=== PATIENT | female | born 1955 | race Caucasian/White ===

== ENCOUNTER 2017-08-18 10:30 | Outpatient (RCR) | payer MEDICARE, SELFPAY ==
[2017-08-18 11:28] LABS: Absolute Lymphocyte Count 0.39 X10^3/ul (0.83-4.51); Absolute Neutrophil Count 3.1 X10^3/uL (2.0-7.7); Basophil# 0.03 X10^3/uL; Basophil% 0.8 % (0-1); Eosinophil# 0.12 X10^3/uL; Hematocrit 35.2 % (37-47); Hemoglobin 11.1 g/dl (12.0-15.0); Lymphocyte # 0.39 X10^3/ul (4.0); Lymphocyte % 9.8 % (19-41); Mean Corp Hgb Conc 31.5 g/gl (32-36); Mean Corpuscular Hgb 29.4 pg (27.0-32.0); Mean Corpuscular Volume 93.1 fL (81-99); Mean Platelet Vol. 11.5 fl (6.2-12.0); Monocyte# 0.39 X10^3/uL; Monocyte% 9.8 % (0-10); Neutrophil # 3.05 X10^3/uL (2.7-7.7); Neutrophil % 76.3 % (47-70); Platelet Count 184 K/mm3 (150-450); RBC Distribution Width CV 13.5 % (11.6-14.6); RBC Distribution Width SD 45.7 fl (35.1-43.9); Red Blood Count 3.78 M/mm3 (4.2-5.4)
[2017-08-18 11:32] LABS: Differential Indicated SCAN CRITERIA MET; POSITIVE COUNT NO; POSITIVE DIFFERENTIAL YES; POSITIVE MORPHOLOGY NO
[2017-08-18 12:03] LABS: Albumin, Serum 3.4 g/dL (3.4-5.0); Anion Gap 9 (5-15); BUN 16 mg/dL (7-18); Calcium,Total 8.6 mg/dL (8.5-10.1); Chloride 99 mmol/L (98-107); Creatinine, Serum 1.14 mg/dL (0.55-1.02); EST Glomerular Filtration Rate 51 mL/min (>60); Est Glom Filt Rate - Afr Amer 62 mL/min (>60); Ferritin 1066 ng/mL (8-252); Glucose 82 mg/dL (70-110); Iron 53 ug/dL (50-170); Iron Binding Capacity,Total 238 ug/dL (250-450); Magnesium 1.8 mg/dL (1.8-2.4); Phosphorus 2.9 mg/dL (2.5-4.9); Potassium 4.5 mmol/L (3.5-5.1); Sodium Level 134 mmol/L (136-145)
[2017-08-20 13:39] LABS: Cyclosporine 526 ng/mL (100-400); Transferrin 188 mg/dL (200-370)
== END 2017-08-18 10:45 | disposition home or self-care (01) ==
LOC: LAB 10:30
PROVIDERS: Family Provider Internal Medicine; PCP Internal Medicine; Visit Provider Physician Assistant
DX: Z48.298 Encounter for aftercare following other organ transplant (principal); D64.9 Anemia, unspecified; D89.9 Disorder involving the immune mechanism, unspecified; Z51.81 Encounter for therapeutic drug level monitoring; Z79.899 Other long term (current) drug therapy; Z94.0 Kidney transplant status
CPT/HCPCS: 36415; 80048; 80158; 82040; 82247; 82728; 83540; 83550; 83735; 84100; 84466; 84550; 85025

== ENCOUNTER 2017-09-15 10:35 | Outpatient (RCR) | payer MEDICARE, SELFPAY ==
[2017-07-29 10:22] VITALS: BP 122/60; BMI 17.0
[2017-09-15 11:21] LABS: Absolute Lymphocyte Count 0.35 X10^3/ul (0.83-4.51); Absolute Neutrophil Count 3.1 X10^3/uL (2.0-7.7); Basophil# 0.02 X10^3/uL; Basophil% 0.5 % (0-1); Eosinophils% 2.5 % (0-5); Hematocrit 36.2 % (37-47); Hemoglobin 11.4 g/dl (12.0-15.0); Lymphocyte # 0.35 X10^3/ul (4.0); Lymphocyte % 8.9 % (19-41); Mean Corp Hgb Conc 31.5 g/gl (32-36); Mean Corpuscular Hgb 29.2 pg (27.0-32.0); Mean Corpuscular Volume 92.6 fL (81-99); Mean Platelet Vol. 11.2 fl (6.2-12.0); Monocyte# 0.38 X10^3/uL; Monocyte% 9.7 % (0-10); Neutrophil # 3.07 X10^3/uL (2.7-7.7); Neutrophil % 78.1 % (47-70); Platelet Count 151 K/mm3 (150-450); RBC Distribution Width CV 13.9 % (11.6-14.6); RBC Distribution Width SD 46.7 fl (35.1-43.9); Red Blood Count 3.91 M/mm3 (4.2-5.4); White Blood Count 3.9 K/mm3 (4.4-11.0)
[2017-09-15 11:22] LABS: Differential Indicated SCAN CRITERIA MET; POSITIVE COUNT NO; POSITIVE DIFFERENTIAL YES; POSITIVE MORPHOLOGY NO
[2017-09-15 11:47] LABS: AST(SGOT) 19 U/L (15-37); Alanine Aminotransfer ALT/SGPT 31 U/L (13-56); Albumin, Serum 3.7 g/dL (3.2-5.0); BUN 18 mg/dL (7-18); Calcium,Total 8.9 mg/dL (8.5-10.1); Chloride 103 mmol/L (98-107); Cholesterol 278 mg/dL (200); Creatinine, Serum 1.18 mg/dL (0.55-1.02); EST Glomerular Filtration Rate 49 mL/min (>60); Est Glom Filt Rate - Afr Amer 59 mL/min (>60); Ferritin 940 ng/mL (8-252); Glucose 77 mg/dL (74-106); High Density Lipoprotein 99 mg/dL; Iron 54 ug/dL (50-170); Iron Binding Capacity,Total 256 ug/dL (250-450); Magnesium 1.8 mg/dL (1.6-2.6); Phosphorus 2.7 mg/dL (2.5-4.9); Potassium 3.9 mmol/L (3.5-5.1); Sodium Level 135 mmol/L (136-145); Triglycerides 68 mg/dL; Uric Acid 5.2 mg/dL (2.6-6.0); Very Low Density Lipoprotein 14 mg/dL (5-40)
[2017-09-15 14:28] LABS: Alkaline Phosphatase 42 U/L (45-117)
[2017-09-17 14:52] LABS: Cyclosporine 373 ng/mL (100-400); Transferrin 198 mg/dL (200-370)
== END 2017-09-15 11:00 | disposition home or self-care (01) ==
LOC: LAB 10:35
PROVIDERS: Family Provider Internal Medicine; PCP Internal Medicine; Visit Provider Physician Assistant
DX: D89.9 Disorder involving the immune mechanism, unspecified (principal); D64.9 Anemia, unspecified; Z94.0 Kidney transplant status; Z51.81 Encounter for therapeutic drug level monitoring; Z48.298 Encounter for aftercare following other organ transplant; Z79.899 Other long term (current) drug therapy
CPT/HCPCS: 36415; 80061; 80158; 82040; 82247; 82310; 82374; 82435; 82565; 82728; 82947; 83540; 83550; 83735; 84075; 84100; 84132; 84295; 84450; 84460; 84466; 84520; 84550; 85025

== ENCOUNTER 2017-10-13 10:35 | Outpatient (RCR) | payer MEDICARE, SELFPAY ==
[2017-10-13 11:25] LABS: Absolute Lymphocyte Count 0.44 X10^3/ul (0.83-4.51); Absolute Neutrophil Count 4.5 X10^3/uL (2.0-7.7); Basophil# 0.02 X10^3/uL; Basophil% 0.4 % (0-1); Eosinophil# 0.13 X10^3/uL; Eosinophils% 2.3 % (0-5); Hematocrit 36.8 % (37-47); Hemoglobin 11.6 g/dl (12.0-15.0); Lymphocyte # 0.44 X10^3/ul (4.0); Lymphocyte % 7.9 % (19-41); Mean Corp Hgb Conc 31.5 g/gl (32-36); Mean Corpuscular Hgb 29.1 pg (27.0-32.0); Mean Corpuscular Volume 92.5 fL (81-99); Mean Platelet Vol. 11.9 fl (6.2-12.0); Monocyte# 0.48 X10^3/uL; Monocyte% 8.6 % (0-10); Neutrophil # 4.47 X10^3/uL (2.7-7.7); Neutrophil % 80.6 % (47-70); Platelet Count 154 K/mm3 (150-450); RBC Distribution Width CV 13.7 % (11.6-14.6); Red Blood Count 3.98 M/mm3 (4.2-5.4); White Blood Count 5.6 K/mm3 (4.4-11.0)
[2017-10-13 11:26] LABS: POSITIVE COUNT NO; POSITIVE DIFFERENTIAL YES; POSITIVE MORPHOLOGY NO
[2017-10-13 11:27] LABS: Differential Indicated SCAN CRITERIA MET
[2017-10-13 11:51] LABS: BUN 15 mg/dL (7-18); Creatinine, Serum 1.25 mg/dL (0.55-1.02); EST Glomerular Filtration Rate 46 mL/min (>60); Est Glom Filt Rate - Afr Amer 56 mL/min (>60); Glucose 80 mg/dL (74-106); Potassium 4.1 mmol/L (3.5-5.1); Sodium Level 135 mmol/L (136-145)
[2017-10-16 09:27] LABS: Cyclosporine 484 ng/mL (100-400)
== END 2017-10-13 11:00 | disposition home or self-care (01) ==
LOC: LAB 10:35
PROVIDERS: Family Provider Internal Medicine; PCP Internal Medicine; Visit Provider Physician Assistant
DX: D89.9 Disorder involving the immune mechanism, unspecified (principal); D64.9 Anemia, unspecified; Z94.0 Kidney transplant status; Z51.81 Encounter for therapeutic drug level monitoring; Z48.298 Encounter for aftercare following other organ transplant; Z79.899 Other long term (current) drug therapy
CPT/HCPCS: 36415; 80158; 82374; 82565; 82947; 84132; 84295; 84520; 85025

== ENCOUNTER 2017-12-08 10:38 | Outpatient (RCR) | payer MEDICARE, SELFPAY ==
[2017-11-10 12:26] LABS: Absolute Lymphocyte Count 0.35 X10^3/ul (0.83-4.51); Absolute Neutrophil Count 5.2 X10^3/uL (2.0-7.7); Basophil# 0.03 X10^3/uL; Basophil% 0.5 % (0-1); Differential Indicated SCAN CRITERIA MET; Eosinophil# 0.12 X10^3/uL; Hematocrit 36.1 % (37-47); Hemoglobin 11.6 g/dl (12.0-15.0); Lymphocyte # 0.35 X10^3/ul (4.0); Lymphocyte % 5.8 % (19-41); Mean Corp Hgb Conc 32.1 g/gl (32-36); Mean Corpuscular Hgb 29.2 pg (27.0-32.0); Mean Corpuscular Volume 90.9 fL (81-99); Mean Platelet Vol. 12.2 fl (6.2-12.0); Monocyte# 0.37 X10^3/uL; Monocyte% 6.1 % (0-10); Neutrophil # 5.15 X10^3/uL (2.7-7.7); Neutrophil % 85.3 % (47-70); POSITIVE COUNT NO; POSITIVE DIFFERENTIAL YES; POSITIVE MORPHOLOGY NO; Platelet Count 148 K/mm3 (150-450); RBC Distribution Width CV 13.4 % (11.6-14.6); Red Blood Count 3.97 M/mm3 (4.2-5.4)
[2017-11-10 12:30] LABS: Ovalocyte 1+
[2017-11-10 12:31] LABS: Platelet Estimate ADEQUATE (ADEQ)
[2017-11-10 12:47] LABS: BUN 17 mg/dL (7-18); Chloride 104 mmol/L (98-107); EST Glomerular Filtration Rate 53 mL/min (>60); Est Glom Filt Rate - Afr Amer 64 mL/min (>60); Ferritin 824 ng/mL (8-252); Glucose 97 mg/dL (74-106); Iron 46 ug/dL (50-170); Iron Binding Capacity,Total 278 ug/dL (250-450); Potassium 3.8 mmol/L (3.5-5.1); Sodium Level 137 mmol/L (136-145)
[2017-11-12 08:13] LABS: Cyclosporine 544 ng/mL (100-400); Transferrin 207 mg/dL (200-370)
[2017-12-08 11:52] LABS: Absolute Lymphocyte Count 0.44 X10^3/ul (0.83-4.51); Absolute Neutrophil Count 3.7 X10^3/uL (2.0-7.7); Basophil# 0.02 X10^3/uL; Basophil% 0.4 % (0-1); Eosinophil# 0.11 X10^3/uL; Eosinophils% 2.3 % (0-5); Hematocrit 37.8 % (37-47); Lymphocyte # 0.44 X10^3/ul (4.0); Lymphocyte % 9.1 % (19-41); Mean Corp Hgb Conc 31.7 g/gl (32-36); Mean Corpuscular Hgb 28.8 pg (27.0-32.0); Mean Corpuscular Volume 90.6 fL (81-99); Mean Platelet Vol. 11.9 fl (6.2-12.0); Monocyte# 0.55 X10^3/uL; Monocyte% 11.4 % (0-10); Neutrophil # 3.68 X10^3/uL (2.7-7.7); Neutrophil % 76.6 % (47-70); Platelet Count 166 K/mm3 (150-450); RBC Distribution Width CV 13.6 % (11.6-14.6); RBC Distribution Width SD 44.4 fl (35.1-43.9); Red Blood Count 4.17 M/mm3 (4.2-5.4); White Blood Count 4.8 K/mm3 (4.4-11.0)
[2017-12-08 11:53] LABS: Differential Indicated SCAN CRITERIA MET; POSITIVE COUNT NO; POSITIVE DIFFERENTIAL YES; POSITIVE MORPHOLOGY NO
[2017-12-08 12:27] LABS: BUN 16 mg/dL (7-18); Chloride 98 mmol/L (98-107); Creatinine, Serum 1.08 mg/dL (0.55-1.02); EST Glomerular Filtration Rate 54 mL/min (>60); Est Glom Filt Rate - Afr Amer 66 mL/min (>60); Glucose 76 mg/dL (74-106); Sodium Level 133 mmol/L (136-145)
[2017-12-10 11:28] LABS: Cyclosporine 683 ng/mL (100-400)
== END 2017-12-08 11:00 | disposition home or self-care (01) ==
LOC: LAB 10:38
PROVIDERS: Family Provider Internal Medicine; PCP Internal Medicine; Visit Provider Physician Assistant
DX: D89.9 Disorder involving the immune mechanism, unspecified (principal); D64.9 Anemia, unspecified; Z94.0 Kidney transplant status; Z51.81 Encounter for therapeutic drug level monitoring; Z48.298 Encounter for aftercare following other organ transplant; Z79.899 Other long term (current) drug therapy
CPT/HCPCS: 36415; 80158; 82374; 82435; 82565; 82728; 82947; 83540; 83550; 84132; 84295; 84466; 84520; 85025

== ENCOUNTER 2018-01-08 09:41 | Outpatient (RCR) | payer MEDICARE, SELFPAY ==
[2018-01-06 11:50] LABS: Protein, Urine (Random) 23.7 mg/dL (<11.9); Protein:Creat Ratio 101 mg/g CRE (0-200)
[2018-01-06 11:51] LABS: Hematocrit 37.3 % (37-47); Mean Corp Hgb Conc 32.2 g/gl (32-36); Mean Corpuscular Hgb 28.8 pg (27.0-32.0); Mean Corpuscular Volume 89.4 fL (81-99); Platelet Count 154 K/mm3 (150-450); RBC Distribution Width CV 13.5 % (11.6-14.6); RBC Distribution Width SD 44.2 fl (35.1-43.9); Red Blood Count 4.17 M/mm3 (4.2-5.4); White Blood Count 4.6 K/mm3 (4.4-11.0)
[2018-01-06 12:00] LABS: Scan Indicated on CBC? Y/N NO
[2018-01-06 12:55] LABS: AST(SGOT) 24 U/L (15-37); Alanine Aminotransfer ALT/SGPT 28 U/L (13-56); Albumin, Serum 3.9 g/dL (3.2-5.0); Alkaline Phosphatase 45 U/L (45-117); BUN 17 mg/dL (7-18); Calcium,Total 9.2 mg/dL (8.5-10.1); Chloride 99 mmol/L (98-107); Cholesterol 223 mg/dL (200); Creatinine, Serum 1.04 mg/dL (0.55-1.02); EST Glomerular Filtration Rate 57 mL/min (>60); Est Glom Filt Rate - Afr Amer 69 mL/min (>60); Ferritin 1033 ng/mL (8-252); Globulin 2.9 g/dL (2.2-4.2); Glucose 79 mg/dL (74-106); High Density Lipoprotein 79 mg/dL; Iron 48 ug/dL (50-170); Iron Binding Capacity,Total 273 ug/dL (250-450); Magnesium 1.7 mg/dL (1.6-2.6); PERCENT IRON SATURATION 17.6 % (15.0-55.0); Phosphorus 2.7 mg/dL (2.5-4.9); Potassium 3.8 mmol/L (3.5-5.1); Protein, Total 6.8 g/dL (6.4-8.2); Sodium Level 135 mmol/L (136-145); Triglycerides 111 mg/dL; Uric Acid 6.3 mg/dL (2.6-6.0)
[2018-01-07 08:41] LABS: PTHIN 63.7 pg/mL (18.4-80.1)
[2018-01-08 10:33] LABS: 24HR. UA Prot. Total Volume 2825 mL; 24HR. Urine Creatinine 0.83 g/24 HR (0.70-1.90)
[2018-01-08 10:34] LABS: Urine Protein (24 Hour) < 6.0 mg/dL (<11.9)
[2018-01-08 12:07] LABS: CHOLESTEROL TOTAL 226 mg/dL (100-199); HDL-C 80 mg/dL (>39); HDL-P TOTAL 37.1 umol/L (>=30.5); SMALL LDL-P <90 nmol/L (<=527); TRIGLYCERIDES 119 mg/dL (0-149)
[2018-01-08 14:35] LABS: LDL SIZE 21.8 nm (>20.5); LDL-C 122 mg/dL (0-99); LDL-P 1038 nmol/L (<1000); LP-IR SCORE ** <25 (<=45)
[2018-01-08 20:08] LABS: LDL, Direct 120295 137 mg/dL (0-99)
[2018-01-09 10:14] LABS: Cyclosporine 566 ng/mL (100-400)
== END 2018-01-08 10:00 | disposition home or self-care (01) ==
LOC: LAB 09:41
PROVIDERS: Family Provider Internal Medicine; PCP Internal Medicine; Visit Provider Physician Assistant
DX: D89.9 Disorder involving the immune mechanism, unspecified (principal); Z94.0 Kidney transplant status; Z48.298 Encounter for aftercare following other organ transplant; Z11.59 Encounter for screening for other viral diseases; Z79.899 Other long term (current) drug therapy; D64.9 Anemia, unspecified; Z51.81 Encounter for therapeutic drug level monitoring
CPT/HCPCS: 36415; 80061; 80076; 80158; 82310; 82435; 82465; 82565; 82570; 82728; 82947; 83540; 83550; 83704; 83718; 83721; 83735; 83970; 84100; 84132; 84156; 84295; 84478; 84520; 84550; 85027

== ENCOUNTER 2018-02-02 10:37 | Outpatient (RCR) | payer MEDICARE, SELFPAY ==
[2018-02-02 11:13] LABS: Hematocrit 39.5 % (37-47); Hemoglobin 12.8 g/dl (12.0-15.0); Mean Corp Hgb Conc 32.4 g/gl (32-36); Mean Corpuscular Hgb 29.4 pg (27.0-32.0); Mean Corpuscular Volume 90.8 fL (81-99); Platelet Count 156 K/mm3 (150-450); RBC Distribution Width CV 13.2 % (11.6-14.6); RBC Distribution Width SD 43.2 fl (35.1-43.9); Red Blood Count 4.35 M/mm3 (4.2-5.4); Scan Indicated on CBC? Y/N NO; White Blood Count 4.5 K/mm3 (4.4-11.0)
[2018-02-02 11:25] LABS: Protein, Urine (Random) 10.2 mg/dL (<11.9); Protein:Creat Ratio 86 mg/g CRE (0-200)
[2018-02-02 11:41] LABS: AST(SGOT) 24 U/L (15-37); Alanine Aminotransfer ALT/SGPT 30 U/L (13-56); Albumin, Serum 3.8 g/dL (3.2-5.0); BUN 16 mg/dL (7-18); Calcium,Total 9.3 mg/dL (8.5-10.1); Chloride 100 mmol/L (98-107); Cholesterol 231 mg/dL (200); Creatinine, Serum 1.06 mg/dL (0.55-1.02); EST Glomerular Filtration Rate 55 mL/min (>60); Est Glom Filt Rate - Afr Amer 67 mL/min (>60); Ferritin 960 ng/mL (8-252); Glucose 80 mg/dL (74-106); High Density Lipoprotein 86 mg/dL; Iron 51 ug/dL (50-170); Iron Binding Capacity,Total 276 ug/dL (250-450); Magnesium 2.1 mg/dL (1.6-2.6); Potassium 4.1 mmol/L (3.5-5.1); Sodium Level 137 mmol/L (136-145); Triglycerides 125 mg/dL; Uric Acid 5.7 mg/dL (2.6-6.0); Very Low Density Lipoprotein 25 mg/dL (5-40)
[2018-02-05 10:43] LABS: Cyclosporine 739 ng/mL (100-400); Transferrin 215 mg/dL (200-370)
== END 2018-02-02 11:00 | disposition home or self-care (01) ==
LOC: LAB 10:37
PROVIDERS: Family Provider Internal Medicine; PCP Internal Medicine; Visit Provider Physician Assistant
DX: D89.9 Disorder involving the immune mechanism, unspecified (principal); B34.9 Viral infection, unspecified; Z94.0 Kidney transplant status; Z48.298 Encounter for aftercare following other organ transplant; Z11.59 Encounter for screening for other viral diseases
CPT/HCPCS: 36415; 80061; 80158; 82040; 82247; 82310; 82374; 82435; 82565; 82570; 82728; 82947; 83540; 83550; 83735; 84100; 84132; 84156; 84295; 84450; 84460; 84466; 84520; 84550; 85027

== ENCOUNTER → 2018-02-02 11:00 | Outpatient (CLI) | payer MEDICARE, SELFPAY ==
[2018-02-02 11:08] VITALS: BP 129/55; PULSE 58; RESP 18; TEMP 36.3; O2SAT 100; BMI 17.0
[2018-02-02] MEDS: DENOSUMAB 60 MG/ML ML SQ (11:13)
== END ==
PROVIDERS: Family Provider Internal Medicine; PCP Internal Medicine; Visit Provider Internal Medicine
DX: M81.0 Age-related osteoporosis without current pathological fracture (principal)
CPT/HCPCS: 36415; 80061; 80158; 82040; 82247; 82310; 82374; 82435; 82565; 82570; 82728; 82947; 83540; 83550; 83735; 84100; 84132; 84156; 84295; 84450; 84460; 84466; 84520; 84550; 85027; 96372; J0897

== ENCOUNTER 2018-03-02 10:35 | Outpatient (RCR) | payer MEDICARE, SELFPAY ==
[2018-03-02 12:12] LABS: Absolute Lymphocyte Count 0.54 X10^3/ul (0.83-4.51); Absolute Neutrophil Count 3.6 X10^3/uL (2.0-7.7); Basophil# 0.03 X10^3/uL; Basophil% 0.6 % (0-1); Eosinophil# 0.17 X10^3/uL; Eosinophils% 3.6 % (0-5); Hematocrit 40.5 % (37-47); Lymphocyte # 0.54 X10^3/ul (4.0); Lymphocyte % 11.4 % (19-41); Mean Corp Hgb Conc 32.1 g/gl (32-36); Mean Corpuscular Hgb 29.1 pg (27.0-32.0); Mean Corpuscular Volume 90.6 fL (81-99); Mean Platelet Vol. 12.7 fl (6.2-12.0); Monocyte% 8.4 % (0-10); Neutrophil % 75.8 % (47-70); Platelet Count 153 K/mm3 (150-450); RBC Distribution Width CV 13.5 % (11.6-14.6); RBC Distribution Width SD 44.1 fl (35.1-43.9); Red Blood Count 4.47 M/mm3 (4.2-5.4); White Blood Count 4.8 K/mm3 (4.4-11.0)
[2018-03-02 12:16] LABS: Differential Indicated SCAN CRITERIA MET; POSITIVE COUNT NO; POSITIVE DIFFERENTIAL YES; POSITIVE MORPHOLOGY NO
[2018-03-02 12:30] LABS: BUN 19 mg/dL (7-18); Chloride 102 mmol/L (98-107); Creatinine, Serum 1.23 mg/dL (0.55-1.02); EST Glomerular Filtration Rate 47 mL/min (>60); Est Glom Filt Rate - Afr Amer 57 mL/min (>60); Glucose 62 mg/dL (74-106); Potassium 4.1 mmol/L (3.5-5.1); Sodium Level 139 mmol/L (136-145)
[2018-03-04 14:46] LABS: Cyclosporine 472 ng/mL (100-400)
== END 2018-03-02 12:00 | disposition home or self-care (01) ==
LOC: LAB 10:35
PROVIDERS: Family Provider Internal Medicine; PCP Internal Medicine; Visit Provider Physician Assistant
DX: D89.9 Disorder involving the immune mechanism, unspecified (principal); B34.9 Viral infection, unspecified; E11.9 Type 2 diabetes mellitus without complications; Z94.0 Kidney transplant status; Z48.298 Encounter for aftercare following other organ transplant; Z11.59 Encounter for screening for other viral diseases
CPT/HCPCS: 36415; 80158; 82374; 82435; 82565; 82947; 84132; 84295; 84520; 85025

== ENCOUNTER 2018-03-30 10:36 | Outpatient (RCR) | payer MEDICARE, SELFPAY ==
[2018-03-30 11:09] LABS: Absolute Lymphocyte Count 0.41 X10^3/ul (0.83-4.51); Absolute Neutrophil Count 5.4 X10^3/uL (2.0-7.7); Basophil# 0.03 X10^3/uL; Basophil% 0.5 % (0-1); Eosinophil# 0.08 X10^3/uL; Eosinophils% 1.3 % (0-5); Hematocrit 40.8 % (37-47); Hemoglobin 12.8 g/dl (12.0-15.0); Lymphocyte # 0.41 X10^3/ul (4.0); Lymphocyte % 6.6 % (19-41); Mean Corp Hgb Conc 31.4 g/gl (32-36); Mean Corpuscular Hgb 28.4 pg (27.0-32.0); Mean Corpuscular Volume 90.7 fL (81-99); Mean Platelet Vol. 11.3 fl (6.2-12.0); Monocyte# 0.37 X10^3/uL; Monocyte% 5.9 % (0-10); Neutrophil # 5.35 X10^3/uL (2.7-7.7); Neutrophil % 85.5 % (47-70); Platelet Count 148 K/mm3 (150-450); RBC Distribution Width CV 13.8 % (11.6-14.6); RBC Distribution Width SD 45.4 fl (35.1-43.9); White Blood Count 6.3 K/mm3 (4.4-11.0)
[2018-03-30 11:14] LABS: Differential Indicated SCAN CRITERIA MET; POSITIVE COUNT NO; POSITIVE DIFFERENTIAL YES; POSITIVE MORPHOLOGY NO
[2018-03-30 12:03] LABS: BUN 16 mg/dL (7-18); BUN/Creat Ratio 16.6 RATIO (10-20); Creatinine, Serum 0.96 mg/dL (0.55-1.02); EST Glomerular Filtration Rate 62 mL/min (>60); Est Glom Filt Rate - Afr Amer 75 mL/min (>60); Glucose 86 mg/dL (74-106); Protein, Total 6.8 g/dL (6.4-8.2)
[2018-03-30 12:04] LABS: ALB/GLOB Ratio 1.4 RATIO (0.9-2.4); AST(SGOT) 27 U/L (15-37); Alanine Aminotransfer ALT/SGPT 38 U/L (13-56); Alkaline Phosphatase 45 U/L (45-117); Anion Gap 10 (5-15); Calcium,Total 8.9 mg/dL (8.5-10.1); Chloride 102 mmol/L (98-107); Globulin 2.8 g/dL (2.2-4.2); Potassium 4.1 mmol/L (3.5-5.1); Sodium Level 138 mmol/L (136-145)
[2018-04-01 11:19] LABS: Cyclosporine 611 ng/mL (100-400)
== END 2018-03-30 12:00 | disposition home or self-care (01) ==
LOC: LAB 10:36
PROVIDERS: Family Provider Internal Medicine; PCP Internal Medicine; Visit Provider Physician Assistant
DX: Z48.298 Encounter for aftercare following other organ transplant (principal); Z94.0 Kidney transplant status; Z11.59 Encounter for screening for other viral diseases; B34.9 Viral infection, unspecified; D89.9 Disorder involving the immune mechanism, unspecified
CPT/HCPCS: 36415; 80053; 80158; 85025

== ENCOUNTER 2018-04-27 10:37 | Outpatient (RCR) | payer MEDICARE, SELFPAY ==
[2018-04-27 11:09] LABS: Absolute Neutrophil Count 4.7 X10^3/uL (2.0-7.7); Basophil# 0.03 X10^3/uL; Basophil% 0.5 % (0-1); Eosinophil# 0.11 X10^3/uL; Eosinophils% 1.9 % (0-5); Hematocrit 41.7 % (37-47); Hemoglobin 13.5 g/dl (12.0-15.0); Lymphocyte % 8.5 % (19-41); Mean Corp Hgb Conc 32.4 g/gl (32-36); Mean Corpuscular Hgb 28.8 pg (27.0-32.0); Mean Corpuscular Volume 89.1 fL (81-99); Mean Platelet Vol. 11.4 fl (6.2-12.0); Monocyte# 0.54 X10^3/uL; Monocyte% 9.2 % (0-10); Neutrophil # 4.66 X10^3/uL (2.7-7.7); Neutrophil % 79.7 % (47-70); Platelet Count 151 K/mm3 (150-450); RBC Distribution Width CV 13.8 % (11.6-14.6); RBC Distribution Width SD 44.6 fl (35.1-43.9); Red Blood Count 4.68 M/mm3 (4.2-5.4); White Blood Count 5.9 K/mm3 (4.4-11.0)
[2018-04-27 11:13] LABS: Differential Indicated SCAN CRITERIA MET; POSITIVE COUNT NO; POSITIVE DIFFERENTIAL YES; POSITIVE MORPHOLOGY NO
[2018-04-27 11:28] LABS: Anion Gap 3 (5-15); BUN 17 mg/dL (7-18); BUN/Creat Ratio 16.2 RATIO (10-20); Calcium,Total 9.9 mg/dL (8.5-10.1); Chloride 102 mmol/L (98-107); Creatinine, Serum 1.05 mg/dL (0.55-1.02); EST Glomerular Filtration Rate 56 mL/min (>60); Est Glom Filt Rate - Afr Amer 68 mL/min (>60); Glucose 86 mg/dL (74-106); Potassium 4.1 mmol/L (3.5-5.1); Sodium Level 136 mmol/L (136-145)
[2018-04-30 09:01] LABS: Cyclosporine 360 ng/mL (100-400)
== END 2018-04-27 12:00 | disposition home or self-care (01) ==
LOC: LAB 10:37
PROVIDERS: Family Provider Internal Medicine; PCP Internal Medicine; Visit Provider Physician Assistant
DX: Z48.298 Encounter for aftercare following other organ transplant (principal); R79.9 Abnormal finding of blood chemistry, unspecified; Z94.0 Kidney transplant status; Z11.59 Encounter for screening for other viral diseases; B34.9 Viral infection, unspecified; D89.9 Disorder involving the immune mechanism, unspecified; Z51.81 Encounter for therapeutic drug level monitoring
CPT/HCPCS: 36415; 80048; 80158; 85025

== ENCOUNTER 2018-05-18 10:35 | Outpatient (RCR) | payer MEDICARE, SELFPAY ==
[2018-05-18 11:21] LABS: Absolute Lymphocyte Count 0.38 X10^3/ul (0.83-4.51); Absolute Neutrophil Count 5.3 X10^3/uL (2.0-7.7); Basophil# 0.03 X10^3/uL; Basophil% 0.5 % (0-1); Eosinophil# 0.08 X10^3/uL; Eosinophils% 1.3 % (0-5); Hematocrit 41.3 % (37-47); Hemoglobin 13.3 g/dl (12.0-15.0); Lymphocyte # 0.38 X10^3/ul (4.0); Lymphocyte % 6.3 % (19-41); Mean Corp Hgb Conc 32.2 g/gl (32-36); Mean Corpuscular Hgb 28.8 pg (27.0-32.0); Mean Corpuscular Volume 89.4 fL (81-99); Mean Platelet Vol. 11.9 fl (6.2-12.0); Neutrophil # 5.25 X10^3/uL (2.7-7.7); Neutrophil % 86.7 % (47-70); Platelet Count 149 K/mm3 (150-450); RBC Distribution Width CV 13.5 % (11.6-14.6); RBC Distribution Width SD 43.7 fl (35.1-43.9); Red Blood Count 4.62 M/mm3 (4.2-5.4); White Blood Count 6.1 K/mm3 (4.4-11.0)
[2018-05-18 11:22] LABS: Differential Indicated SCAN CRITERIA MET; POSITIVE COUNT NO; POSITIVE DIFFERENTIAL YES; POSITIVE MORPHOLOGY NO
[2018-05-18 11:48] LABS: Anion Gap 7 (5-15); BUN 17 mg/dL (7-18); BUN/Creat Ratio 17.1 RATIO (10-20); Calcium,Total 9.5 mg/dL (8.5-10.1); Chloride 101 mmol/L (98-107); Creatinine, Serum 0.99 mg/dL (0.55-1.02); EST Glomerular Filtration Rate 60 mL/min (>60); Est Glom Filt Rate - Afr Amer 72 mL/min (>60); Glucose 87 mg/dL (74-106); Potassium 4.4 mmol/L (3.5-5.1); Sodium Level 137 mmol/L (136-145)
[2018-05-18 12:47] LABS: Platelet Estimate ADEQUATE (ADEQ); Red Cell Morphology NORM C+C NORMAL (NORM C&C)
[2018-05-20 15:14] LABS: Cyclosporine 251 ng/mL (100-400)
== END 2018-05-18 12:00 | disposition home or self-care (01) ==
LOC: LAB 10:35
PROVIDERS: Family Provider Internal Medicine; PCP Internal Medicine
DX: Z48.298 Encounter for aftercare following other organ transplant (principal); R79.9 Abnormal finding of blood chemistry, unspecified; D89.9 Disorder involving the immune mechanism, unspecified; Z94.0 Kidney transplant status; R68.89 Other general symptoms and signs
CPT/HCPCS: 36415; 80048; 80158; 85025

== ENCOUNTER → 2018-06-16 09:28 | Outpatient (CLI) | payer MEDICARE, SELFPAY ==
--- NOTE | 2018-06-16 09:53 | RAD_ITS ---
STUDY: X-RAY - LEFT FOOT CLINICAL: Female, 62 years old. Pain and bruising base of fourth and fifth toes after trauma. TECHNIQUE: 3 view(s) of the foot. COMPARISON: None. FINDINGS: Normal talus, calcaneus, and tarsal bones. Normal visualized subtalar, talonavicular, calcaneocuboid, tarsal and tarsometatarsal articulations. Thickening of the cortex distal diaphysis of the fifth metatarsal compatible with a healed fracture. Normal metatarsophalangeal joint of the great toe. Normal tibial and fibular sesamoid bones. Normal interphalangeal joint of the great toe. Normal phalanges of the great toe. Normal second through fifth metatarsophalangeal joints. Longitudinal nondisplaced fracture midshaft proximal phalanx fourth toe versus healed fracture. The soft tissue structures are unremarkable. RAD/Foot min 3 Views IMPRESSION: Nondisplaced fracture proximal phalanx of the fourth toe versus healed fracture. Old fracture fifth metatarsal. Electronically Signed: Jakob Griffin MD at 5:05 EST , Service support ,
== END ==
PROVIDERS: Family Provider Internal Medicine; PCP Internal Medicine; Referring Provider Internal Medicine; Visit Provider Internal Medicine
DX: M79.672 Pain in left foot (principal)
CPT/HCPCS: 73630

== ENCOUNTER → 2018-06-17 13:15 | Outpatient (CLI) | payer SELFPAY ==
--- NOTE | 2018-06-17 13:27 | CT_ITS ---
STUDY: CT CHEST WITHOUT CONTRAST REASON FOR EXAM: Female, 62 years old. Elevated cholesterol RADIATION DOSAGE (If Supplied By Facility): CTDIvol = ( 12.19 ) mGy, DLP = ( 268.17 ) mGycm TECHNIQUE: Transaxial imaging was performed without the administration of intravenous contrast material. Individualized dose optimization techniques were used for this CT. COMPARISON: None. FINDINGS: : TRACHEA, THYROID, ESOPHAGUS: No tracheomalacia,stricture or wall thickening. Thyroid and esophagus are normal CARDIOVASCULAR SYSTEM: The thoracic aorta is grossly within normal limits. The pulmonary trunk and the left and right pulmonary arteries are also grossly within normal limits. Heart is enlarged with a mild left ventricular preponderance. FIDELINA AND LYMPH NODES: No hilar masses and no mediastinal, hilar, axillary or supraclavicular adenopathy LUNGS, LOW-ATTENUATION: No traction bronchiectasis, honeycombing,emphysema, lung cysts or cavitations LUNGS, HIGH ATTENUATION: No nodules/masses, ground glass opacities/consolidations or increased interstitial markings LUNGS, MOSAIC/CRAZY PAVING: Not evident PLEURA AND CHEST WALL: No plural effusions, pneumothoraces,rib fractures or any osteolytic/osteoblastic changes . The soft tissue chest wall including the breasts are normal UPPER ABDOMEN: Markedly atrophic kidneys .. CT/Limited Chest CT w/CCTA IMPRESSION: Mild cardiomegaly with left ventricular preponderance. No acute findings in the lungs. No emphysematous changes in the lungs Electronically Signed: Fritz Verde MD at 3:21 EST Tel , Service support ,
[2018-06-17 13:34] VITALS: BP 120/50; PULSE 63; RESP 16; O2SAT 100; BMI 17.6
--- NOTE | 2018-06-17 18:17 | CA.SCORE ---
Calcium Scoring Date of Study:: 06/17/18 Coronary Calcium Scoring: Coronary calcium score: 0.0 Conclusion: Coronary calcium score: 0.0 Results: The patient underwent high resolution CT imaging of the chest on 06/17/2018. Particular attention was paid to the coronary arteries for the extent of coronary artery calcification. Coronary calcium quantification software was subsequently used. The patient was reported as tolerating the procedure well with no adverse events. The coronary calcium score was reported at 0.0. Based upon pre-published reference tables this is indicative of no identifiable atherosclerotic plaque and a very low risk of cardiovascular disease with a less than 5% chance of the presence of coronary artery disease. Impression: Coronary calcium score: 0.0 This note was generated using a voice recognition system and there may be incorrect words, spelling or punctuation that were not noted when reviewing the office note prior to saving.
== END ==
PROVIDERS: Family Provider Internal Medicine; PCP Internal Medicine; Referring Provider Internal Medicine; Visit Provider Internal Medicine
DX: E78.00 Pure hypercholesterolemia, unspecified (principal)
CPT/HCPCS: 75571; 76380

== ENCOUNTER 2018-06-22 10:41 | Outpatient (RCR) | payer MEDICARE, SELFPAY ==
[2018-06-22 11:30] LABS: Absolute Lymphocyte Count 0.43 X10^3/ul (0.83-4.51); Absolute Neutrophil Count 4.3 X10^3/uL (2.0-7.7); Basophil# 0.02 X10^3/uL; Basophil% 0.4 % (0-1); Eosinophil# 0.13 X10^3/uL; Eosinophils% 2.4 % (0-5); Hematocrit 38.6 % (37-47); Hemoglobin 12.3 g/dl (12.0-15.0); Lymphocyte # 0.43 X10^3/ul (4.0); Lymphocyte % 8.1 % (19-41); Mean Corp Hgb Conc 31.9 g/gl (32-36); Mean Corpuscular Hgb 28.8 pg (27.0-32.0); Mean Corpuscular Volume 90.4 fL (81-99); Mean Platelet Vol. 12.4 fl (6.2-12.0); Monocyte# 0.41 X10^3/uL; Monocyte% 7.7 % (0-10); Neutrophil # 4.34 X10^3/uL (2.7-7.7); Neutrophil % 81.2 % (47-70); Platelet Count 134 K/mm3 (150-450); RBC Distribution Width CV 13.2 % (11.6-14.6); RBC Distribution Width SD 43.3 fl (35.1-43.9); Red Blood Count 4.27 M/mm3 (4.2-5.4); White Blood Count 5.3 K/mm3 (4.4-11.0)
[2018-06-22 11:34] LABS: Differential Indicated SCAN CRITERIA MET; POSITIVE COUNT NO; POSITIVE DIFFERENTIAL YES; POSITIVE MORPHOLOGY NO
[2018-06-22 11:40] LABS: Anion Gap 6 (5-15); BUN 19 mg/dL (7-18); BUN/Creat Ratio 17.8 RATIO (10-20); Calcium,Total 9.1 mg/dL (8.5-10.1); Chloride 98 mmol/L (98-107); Creatinine, Serum 1.07 mg/dL (0.55-1.02); EST Glomerular Filtration Rate 55 mL/min (>60); Est Glom Filt Rate - Afr Amer 66 mL/min (>60); Glucose 82 mg/dL (74-106); Potassium 4.7 mmol/L (3.5-5.1); Sodium Level 133 mmol/L (136-145)
[2018-06-24 10:24] LABS: Cyclosporine 223 ng/mL (100-400)
== END 2018-07-10 09:37 | disposition home or self-care (01) ==
LOC: LAB 10:41
PROVIDERS: Family Provider Internal Medicine; PCP Internal Medicine; Referring Provider Physician Assistant; Visit Provider Physician Assistant
DX: Z48.298 Encounter for aftercare following other organ transplant (principal); R79.9 Abnormal finding of blood chemistry, unspecified; D89.9 Disorder involving the immune mechanism, unspecified; Z94.0 Kidney transplant status; R68.89 Other general symptoms and signs
CPT/HCPCS: 36415; 80048; 80158; 85025

== ENCOUNTER 2018-07-20 10:37 | Outpatient (RCR) | payer MEDICARE, SELFPAY ==
[2018-07-20 11:48] LABS: Absolute Lymphocyte Count 0.56 X10^3/ul (0.83-4.51); Absolute Neutrophil Count 4.8 X10^3/uL (2.0-7.7); Basophil# 0.03 X10^3/uL; Basophil% 0.5 % (0-1); Eosinophil# 0.15 X10^3/uL; Eosinophils% 2.6 % (0-5); Hematocrit 37.3 % (37-47); Hemoglobin 11.9 g/dl (12.0-15.0); Lymphocyte # 0.56 X10^3/ul (4.0); Lymphocyte % 9.8 % (19-41); Mean Corp Hgb Conc 31.9 g/gl (32-36); Mean Corpuscular Hgb 28.5 pg (27.0-32.0); Mean Corpuscular Volume 89.2 fL (81-99); Mean Platelet Vol. 11.1 fl (6.2-12.0); Monocyte# 0.24 X10^3/uL; Monocyte% 4.2 % (0-10); Neutrophil # 4.75 X10^3/uL (2.7-7.7); Neutrophil % 82.7 % (47-70); Platelet Count 186 K/mm3 (150-450); RBC Distribution Width CV 13.1 % (11.6-14.6); RBC Distribution Width SD 42.8 fl (35.1-43.9); Red Blood Count 4.18 M/mm3 (4.2-5.4); White Blood Count 5.7 K/mm3 (4.4-11.0)
[2018-07-20 11:53] LABS: Anion Gap 9 (5-15); BUN 14 mg/dL (7-18); BUN/Creat Ratio 13.7 RATIO (10-20); Calcium,Total 9.7 mg/dL (8.5-10.1); Chloride 97 mmol/L (98-107); Creatinine, Serum 1.02 mg/dL (0.55-1.02); EST Glomerular Filtration Rate 58 mL/min (>60); Est Glom Filt Rate - Afr Amer 70 mL/min (>60); Glucose 88 mg/dL (74-106); Potassium 4.5 mmol/L (3.5-5.1); Sodium Level 136 mmol/L (136-145)
[2018-07-20 13:22] LABS: POSITIVE COUNT NO; POSITIVE DIFFERENTIAL YES; POSITIVE MORPHOLOGY NO
[2018-07-20 13:23] LABS: Differential Indicated SCAN CRITERIA MET; Platelet Estimate ADEQUATE (ADEQ); Red Cell Morphology NORM C+C NORMAL (NORM C&C)
[2018-07-24 09:17] LABS: Cyclosporine 281 ng/mL (100-400)
== END 2018-07-20 14:00 | disposition home or self-care (01) ==
LOC: LAB 10:37
PROVIDERS: Family Provider Internal Medicine; PCP Internal Medicine; Referring Provider Physician Assistant; Visit Provider Physician Assistant
DX: Z48.298 Encounter for aftercare following other organ transplant (principal); R79.9 Abnormal finding of blood chemistry, unspecified; D89.9 Disorder involving the immune mechanism, unspecified; Z94.0 Kidney transplant status; R68.89 Other general symptoms and signs
CPT/HCPCS: 36415; 80048; 80158; 85025

== ENCOUNTER → 2018-08-05 08:58 | Outpatient (CLI) | payer MEDICARE, SELFPAY ==
[2018-06-17 13:34] VITALS: BMI 17.6
[2018-08-05 09:15] VITALS: BP 123/45; PULSE 56; RESP 16; TEMP 36.6; O2SAT 98; BMI 17.6
[2018-08-05] MEDS: DENOSUMAB 60 MG/ML ML SQ (09:24)
== END ==
PROVIDERS: Family Provider Internal Medicine; PCP Internal Medicine; Referring Provider Internal Medicine; Visit Provider Internal Medicine
DX: M81.0 Age-related osteoporosis without current pathological fracture (principal)
CPT/HCPCS: 96372; J0897

== ENCOUNTER 2018-08-17 10:30 | Outpatient (RCR) | payer MEDICARE, SELFPAY ==
[2018-08-05 09:15] VITALS: BMI 17.6
[2018-08-17 10:58] LABS: Absolute Lymphocyte Count 0.48 X10^3/ul (0.83-4.51); Absolute Neutrophil Count 2.8 X10^3/uL (2.0-7.7); Basophil# 0.03 X10^3/uL; Basophil% 0.8 % (0-1); Eosinophil# 0.13 X10^3/uL; Eosinophils% 3.4 % (0-5); Hematocrit 38.5 % (37-47); Hemoglobin 12.6 g/dl (12.0-15.0); Lymphocyte # 0.48 X10^3/ul (4.0); Lymphocyte % 12.5 % (19-41); Mean Corp Hgb Conc 32.7 g/gl (32-36); Mean Corpuscular Hgb 28.6 pg (27.0-32.0); Mean Corpuscular Volume 87.3 fL (81-99); Mean Platelet Vol. 11.8 fl (6.2-12.0); Monocyte# 0.43 X10^3/uL; Monocyte% 11.2 % (0-10); Neutrophil # 2.76 X10^3/uL (2.7-7.7); Neutrophil % 71.8 % (47-70); Platelet Count 158 K/mm3 (150-450); RBC Distribution Width CV 13.4 % (11.6-14.6); Red Blood Count 4.41 M/mm3 (4.2-5.4); White Blood Count 3.8 K/mm3 (4.4-11.0)
[2018-08-17 11:00] LABS: Differential Indicated SCAN CRITERIA MET; POSITIVE COUNT NO; POSITIVE DIFFERENTIAL YES; POSITIVE MORPHOLOGY NO
[2018-08-17 11:35] LABS: Anion Gap 9 (5-15); BUN 19 mg/dL (7-18); BUN/Creat Ratio 17.6 RATIO (10-20); Calcium,Total 9.4 mg/dL (8.5-10.1); Chloride 97 mmol/L (98-107); Creatinine, Serum 1.08 mg/dL (0.55-1.02); EST Glomerular Filtration Rate 54 mL/min (>60); Est Glom Filt Rate - Afr Amer 66 mL/min (>60); Glucose 75 mg/dL (74-106); Potassium 4.2 mmol/L (3.5-5.1); Sodium Level 133 mmol/L (136-145)
[2018-08-20 09:55] LABS: Cyclosporine 708 ng/mL (100-400)
== END 2018-08-17 11:30 | disposition home or self-care (01) ==
LOC: LAB 10:30
PROVIDERS: Family Provider Internal Medicine; PCP Internal Medicine; Referring Provider Physician Assistant; Visit Provider Physician Assistant
DX: Z48.298 Encounter for aftercare following other organ transplant (principal); R79.9 Abnormal finding of blood chemistry, unspecified; D89.9 Disorder involving the immune mechanism, unspecified; B34.9 Viral infection, unspecified; D64.9 Anemia, unspecified; Z94.0 Kidney transplant status; Z51.81 Encounter for therapeutic drug level monitoring; Z11.59 Encounter for screening for other viral diseases
CPT/HCPCS: 80048; 80158; 85025

== ENCOUNTER 2018-09-14 10:29 | Outpatient (RCR) | payer MEDICARE, SELFPAY ==
[2018-08-05 09:15] VITALS: BMI 17.6
[2018-09-14 11:09] LABS: Absolute Neutrophil Count 3.3 X10^3/uL (2.0-7.7); Basophil# 0.03 X10^3/uL; Basophil% 0.7 % (0-1); Eosinophil# 0.13 X10^3/uL; Hematocrit 38.1 % (37-47); Hemoglobin 12.3 g/dl (12.0-15.0); Lymphocyte % 9.3 % (19-41); Mean Corp Hgb Conc 32.3 g/gl (32-36); Mean Corpuscular Hgb 29.5 pg (27.0-32.0); Mean Corpuscular Volume 91.4 fL (81-99); Mean Platelet Vol. 12.1 fl (6.2-12.0); Monocyte# 0.39 X10^3/uL; Monocyte% 9.1 % (0-10); Neutrophil # 3.33 X10^3/uL (2.7-7.7); Neutrophil % 77.7 % (47-70); Platelet Count 134 K/mm3 (150-450); RBC Distribution Width CV 13.8 % (11.6-14.6); RBC Distribution Width SD 45.2 fl (35.1-43.9); Red Blood Count 4.17 M/mm3 (4.2-5.4); White Blood Count 4.3 K/mm3 (4.4-11.0)
[2018-09-14 11:12] LABS: Differential Indicated SCAN CRITERIA MET; POSITIVE COUNT NO; POSITIVE DIFFERENTIAL YES; POSITIVE MORPHOLOGY NO
[2018-09-14 11:38] LABS: BUN 19 mg/dL (7-18); Chloride 102 mmol/L (98-107); Creatinine, Serum 1.01 mg/dL (0.55-1.02); EST Glomerular Filtration Rate 59 mL/min (>60); Est Glom Filt Rate - Afr Amer 71 mL/min (>60); Glucose 82 mg/dL (74-106); Sodium Level 140 mmol/L (136-145)
[2018-09-16 13:03] LABS: Cyclosporine 600 ng/mL (100-400)
== END 2018-10-08 13:31 | disposition home or self-care (01) ==
LOC: LAB 10:29
PROVIDERS: Family Provider Internal Medicine; PCP Internal Medicine; Referring Provider Physician Assistant; Visit Provider Physician Assistant
DX: Z48.298 Encounter for aftercare following other organ transplant (principal); R79.9 Abnormal finding of blood chemistry, unspecified; D89.9 Disorder involving the immune mechanism, unspecified; B34.9 Viral infection, unspecified; D64.9 Anemia, unspecified; Z94.0 Kidney transplant status; Z51.81 Encounter for therapeutic drug level monitoring; Z11.59 Encounter for screening for other viral diseases
CPT/HCPCS: 36415; 80158; 82374; 82435; 82565; 82947; 84295; 84520; 85025

== ENCOUNTER 2018-10-12 10:26 | Outpatient (RCR) | payer MEDICARE, SELFPAY ==
[2018-08-05 09:15] VITALS: BMI 17.6
[2018-10-12 12:56] LABS: Absolute Lymphocyte Count 0.38 X10^3/ul (0.83-4.51); Basophil# 0.03 X10^3/uL; Basophil% 0.6 % (0-1); Eosinophil# 0.08 X10^3/uL; Eosinophils% 1.6 % (0-5); Hematocrit 39.8 % (37-47); Hemoglobin 12.7 g/dl (12.0-15.0); Lymphocyte # 0.38 X10^3/ul (4.0); Lymphocyte % 7.7 % (19-41); Mean Corp Hgb Conc 31.9 g/gl (32-36); Mean Corpuscular Hgb 29.2 pg (27.0-32.0); Mean Corpuscular Volume 91.5 fL (81-99); Mean Platelet Vol. 12.8 fl (6.2-12.0); Monocyte# 0.44 X10^3/uL; Neutrophil # 3.97 X10^3/uL (2.7-7.7); Neutrophil % 80.9 % (47-70); Platelet Count 135 K/mm3 (150-450); RBC Distribution Width CV 13.5 % (11.6-14.6); RBC Distribution Width SD 44.5 fl (35.1-43.9); Red Blood Count 4.35 M/mm3 (4.2-5.4); White Blood Count 4.9 K/mm3 (4.4-11.0)
[2018-10-12 12:57] LABS: Differential Indicated SCAN CRITERIA MET; POSITIVE COUNT NO; POSITIVE DIFFERENTIAL YES; POSITIVE MORPHOLOGY NO
[2018-10-12 13:33] LABS: BUN 16 mg/dL (7-18); Chloride 100 mmol/L (98-107); Creatinine, Serum 1.03 mg/dL (0.55-1.02); EST Glomerular Filtration Rate 57 mL/min (>60); Est Glom Filt Rate - Afr Amer 69 mL/min (>60); Glucose 80 mg/dL (74-106); Potassium 4.4 mmol/L (3.5-5.1); Sodium Level 133 mmol/L (136-145)
[2018-10-12 13:47] LABS: Platelet Estimate SLT DEC (ADEQ)
[2018-10-14 20:11] LABS: Cyclosporine 581 ng/mL (100-400)
== END 2018-10-12 11:00 | disposition home or self-care (01) ==
LOC: LAB 10:26
PROVIDERS: Family Provider Internal Medicine; PCP Internal Medicine; Referring Provider Physician Assistant; Visit Provider Physician Assistant
DX: Z48.298 Encounter for aftercare following other organ transplant (principal); R79.9 Abnormal finding of blood chemistry, unspecified; D89.9 Disorder involving the immune mechanism, unspecified; B34.9 Viral infection, unspecified; D64.9 Anemia, unspecified; Z94.0 Kidney transplant status; Z51.81 Encounter for therapeutic drug level monitoring; Z11.59 Encounter for screening for other viral diseases
CPT/HCPCS: 36415; 80158; 82374; 82435; 82565; 82947; 84132; 84295; 84520; 85025

== ENCOUNTER → 2018-10-22 07:36 | Outpatient (CLI) | payer MEDICARE, SELFPAY ==
[2018-08-05 09:15] VITALS: BMI 17.6
--- NOTE | 2018-10-22 07:38 | BI_ITS ---
MAMMOGRAPHY - BILATERAL SCREENING REASON FOR EXAM: Female, 62 years old. Routine annual screening examination. PERTINENT HISTORY: Sister with breast cancer. History of prior ultrasound-guided breast biopsy. TECHNIQUE: Digital bilateral breast wilbert (3D mammographic acquisition) in the CC and MLO projections. 2-D mediolateral oblique (MLO) and craniocaudad (CC) views of both breasts were obtained. CAD: Full Field Digital Mammography with Computer Added Detection was performed. COMPARISON: Comparison is made with prior study dated August 12, 2017 and July 29, 2016. FINDINGS: Breast Composition: The breasts are heterogeneously dense, which may obscure small masses. There are no dominant masses or suspicious calcifications. A tissue clip marker is seen in the deep upper lateral aspect of the left breast. This is unchanged. No other significant abnormalities are identified. There has been no significant change since the prior study. BI/SCREENING MAMM (CAD), BILAT IMPRESSION: Stable bilateral screening mammogram. Yearly follow-up mammogram recommended. (A) ASSESSMENT CATEGORY: BIRADS Category 2: Benign. A letter regarding these results will be sent to the patient by the facility within 30 days. Approximately 10% of breast cancers are not detected by mammography. A normal mammogram should not delay biopsy of a clinically suspicious abnormality. [id number] Electronically Signed: Willie Anderson, at 10:15 EDT , Service support ,
== END ==
PROVIDERS: Family Provider Internal Medicine; PCP Internal Medicine; Referring Provider Internal Medicine; Visit Provider Internal Medicine
DX: Z12.31 Encounter for screening mammogram for malignant neoplasm of breast (principal)
CPT/HCPCS: 77063; 77067

== ENCOUNTER 2018-11-09 10:27 | Outpatient (RCR) | payer MEDICARE, OTHER, SELFPAY ==
[2018-08-05 09:15] VITALS: BMI 17.6
[2018-11-09 12:19] LABS: Hematocrit 36.9 % (37-47); Hemoglobin 12.2 g/dl (12.0-15.0); Mean Corp Hgb Conc 33.1 g/gl (32-36); Mean Corpuscular Hgb 29.2 pg (27.0-32.0); Mean Corpuscular Volume 88.3 fL (81-99); Mean Platelet Vol. 12.7 fl (6.2-12.0); Platelet Count 142 K/mm3 (150-450); RBC Distribution Width CV 13.6 % (11.6-14.6); Red Blood Count 4.18 M/mm3 (4.2-5.4); Scan Indicated on CBC? Y/N NO; White Blood Count 4.4 K/mm3 (4.4-11.0)
[2018-11-09 12:55] LABS: AST(SGOT) 27 U/L (15-37); Alanine Aminotransfer ALT/SGPT 39 U/L (13-56); BUN 16 mg/dL (7-18); Calcium,Total 9.1 mg/dL (8.5-10.1); Chloride 100 mmol/L (98-107); Cholesterol 225 mg/dL (200); Creatinine, Serum 1.03 mg/dL (0.55-1.02); EST Glomerular Filtration Rate 57 mL/min (>60); Est Glom Filt Rate - Afr Amer 69 mL/min (>60); Ferritin 1051 ng/mL (8-252); Glucose 78 mg/dL (74-106); High Density Lipoprotein 99 mg/dL; Iron 72 ug/dL (50-170); Iron Binding Capacity,Total 281 ug/dL (250-450); Magnesium 1.8 mg/dL (1.6-2.6); Potassium 3.9 mmol/L (3.5-5.1); Sodium Level 136 mmol/L (136-145); Triglycerides 79 mg/dL; Uric Acid 5.4 mg/dL (2.6-6.0); Very Low Density Lipoprotein 16 mg/dL (5-40)
[2018-11-09 17:56] LABS: Protein, Urine (Random) 9.9 mg/dL (<11.9); Protein:Creat Ratio 79 mg/g CRE (0-200)
[2018-11-12 14:10] LABS: Cyclosporine 452 ng/mL (100-400); Transferrin 210 mg/dL (200-370)
== END 2018-12-08 16:00 | disposition home or self-care (01) ==
LOC: LAB 10:27
PROVIDERS: Family Provider Internal Medicine; PCP Internal Medicine; Referring Provider Physician Assistant; Visit Provider Physician Assistant
DX: Z48.298 Encounter for aftercare following other organ transplant (principal); R79.9 Abnormal finding of blood chemistry, unspecified; D89.9 Disorder involving the immune mechanism, unspecified; B34.9 Viral infection, unspecified; D64.9 Anemia, unspecified; Z94.0 Kidney transplant status; Z51.81 Encounter for therapeutic drug level monitoring; Z11.59 Encounter for screening for other viral diseases
CPT/HCPCS: 36415; 80061; 80158; 82040; 82247; 82310; 82374; 82435; 82565; 82570; 82728; 82947; 83540; 83550; 83735; 84100; 84132; 84156; 84295; 84450; 84460; 84466; 84520; 84550; 85027

== ENCOUNTER 2018-12-21 10:44 | Outpatient (RCR) | payer SELFPAY ==
[2018-08-05 09:15] VITALS: BMI 17.6
[2018-12-21 11:19] LABS: Absolute Lymphocyte Count 0.42 X10^3/ul (0.83-4.51); Basophil# 0.03 X10^3/uL; Basophil% 0.6 % (0-1); Eosinophil# 0.15 X10^3/uL; Hematocrit 39.8 % (37-47); Lymphocyte # 0.42 X10^3/ul (4.0); Lymphocyte % 8.4 % (19-41); Mean Corp Hgb Conc 32.7 g/gl (32-36); Mean Corpuscular Hgb 28.8 pg (27.0-32.0); Mean Corpuscular Volume 88.1 fL (81-99); Mean Platelet Vol. 11.8 fl (6.2-12.0); Monocyte# 0.42 X10^3/uL; Monocyte% 8.4 % (0-10); Neutrophil # 3.96 X10^3/uL (2.7-7.7); Neutrophil % 79.2 % (47-70); Platelet Count 145 K/mm3 (150-450); RBC Distribution Width CV 13.4 % (11.6-14.6); RBC Distribution Width SD 42.1 fl (35.1-43.9); Red Blood Count 4.52 M/mm3 (4.2-5.4)
[2018-12-21 11:21] LABS: Differential Indicated SCAN CRITERIA MET; POSITIVE COUNT NO; POSITIVE DIFFERENTIAL YES; POSITIVE MORPHOLOGY NO
[2018-12-21 11:49] LABS: BUN 20 mg/dL (7-18); Chloride 99 mmol/L (98-107); Creatinine, Serum 1.06 mg/dL (0.55-1.02); EST Glomerular Filtration Rate 55 mL/min (>60); Est Glom Filt Rate - Afr Amer 67 mL/min (>60); Glucose 81 mg/dL (74-106); Potassium 4.2 mmol/L (3.5-5.1); Sodium Level 135 mmol/L (136-145)
[2018-12-24 14:15] LABS: Cyclosporine 576 ng/mL (100-400)
== END 2018-12-21 12:00 | disposition home or self-care (01) ==
LOC: LAB 10:44
PROVIDERS: Family Provider Internal Medicine; PCP Internal Medicine; Referring Provider Physician Assistant; Visit Provider Physician Assistant
DX: Z48.298 Encounter for aftercare following other organ transplant (principal); R79.9 Abnormal finding of blood chemistry, unspecified; D89.9 Disorder involving the immune mechanism, unspecified; B34.9 Viral infection, unspecified; D64.9 Anemia, unspecified; Z94.0 Kidney transplant status; Z51.81 Encounter for therapeutic drug level monitoring; Z11.59 Encounter for screening for other viral diseases
CPT/HCPCS: 36415; 80158; 82374; 82435; 82565; 82947; 84132; 84295; 84520; 85025

== ENCOUNTER 2019-01-18 10:28 | Outpatient (RCR) | payer MEDICARE, OTHER, SELFPAY ==
[2018-08-05 09:15] VITALS: BMI 17.6
[2019-01-18 11:35] LABS: Absolute Lymphocyte Count 0.55 X10^3/ul (0.83-4.51); Absolute Neutrophil Count 3.8 X10^3/uL (2.0-7.7); Basophil# 0.03 X10^3/uL; Basophil% 0.6 % (0-1); Eosinophil# 0.11 X10^3/uL; Eosinophils% 2.4 % (0-5); Hematocrit 39.3 % (37-47); Hemoglobin 12.9 g/dl (12.0-15.0); Lymphocyte # 0.55 X10^3/ul (4.0); Lymphocyte % 11.8 % (19-41); Mean Corp Hgb Conc 32.8 g/gl (32-36); Mean Corpuscular Hgb 29.4 pg (27.0-32.0); Mean Corpuscular Volume 89.5 fL (81-99); Mean Platelet Vol. 11.1 fl (6.2-12.0); Monocyte# 0.17 X10^3/uL; Monocyte% 3.6 % (0-10); Neutrophil # 3.81 X10^3/uL (2.7-7.7); Neutrophil % 81.4 % (47-70); Platelet Count 145 K/mm3 (150-450); RBC Distribution Width CV 13.6 % (11.6-14.6); RBC Distribution Width SD 44.9 fl (35.1-43.9); Red Blood Count 4.39 M/mm3 (4.2-5.4); White Blood Count 4.7 K/mm3 (4.4-11.0)
[2019-01-18 11:36] LABS: Differential Indicated SCAN CRITERIA MET; POSITIVE COUNT NO; POSITIVE DIFFERENTIAL YES; POSITIVE MORPHOLOGY NO
[2019-01-18 12:03] LABS: BUN 14 mg/dL (7-18); Chloride 99 mmol/L (98-107); Creatinine, Serum 1.03 mg/dL (0.55-1.02); EST Glomerular Filtration Rate 57 mL/min (>60); Est Glom Filt Rate - Afr Amer 69 mL/min (>60); Glucose 81 mg/dL (74-106); Potassium 4.4 mmol/L (3.5-5.1); Sodium Level 137 mmol/L (136-145)
[2019-01-22 11:41] LABS: Cyclosporine 558 ng/mL (100-400)
== END 2019-01-18 11:00 | disposition home or self-care (01) ==
LOC: LAB 10:28
PROVIDERS: Family Provider Internal Medicine; PCP Internal Medicine
DX: Z48.298 Encounter for aftercare following other organ transplant (principal); R79.9 Abnormal finding of blood chemistry, unspecified; D89.9 Disorder involving the immune mechanism, unspecified; B34.9 Viral infection, unspecified; D64.9 Anemia, unspecified; Z94.0 Kidney transplant status; Z51.81 Encounter for therapeutic drug level monitoring; Z11.59 Encounter for screening for other viral diseases
CPT/HCPCS: 36415; 80158; 82374; 82435; 82565; 82947; 84132; 84295; 84520; 85025

== ENCOUNTER → 2019-02-03 07:59 | Outpatient (CLI) | payer MEDICARE, OTHER, SELFPAY ==
[2018-08-05 09:15] VITALS: BMI 17.6
[2019-02-03 08:13] VITALS: BP 112/64; PULSE 63; RESP 16; TEMP 36.5; O2SAT 100; BMI 17.6
[2019-02-03] MEDS: DENOSUMAB 60 MG/ML ML SQ (08:17)
== END ==
PROVIDERS: Family Provider Internal Medicine; PCP Internal Medicine; Referring Provider Internal Medicine; Visit Provider Internal Medicine
DX: M81.0 Age-related osteoporosis without current pathological fracture (principal)
CPT/HCPCS: 96372; J0897

== ENCOUNTER 2019-02-15 10:45 | Outpatient (RCR) | payer MEDICARE, OTHER, SELFPAY ==
[2019-02-03 08:13] VITALS: BMI 17.6
[2019-02-15 12:31] LABS: Hematocrit 40.6 % (37-47); Hemoglobin 13.3 g/dl (12.0-15.0); Mean Corp Hgb Conc 32.8 g/gl (32-36); Mean Corpuscular Hgb 29.6 pg (27.0-32.0); Mean Corpuscular Volume 90.4 fL (81-99); Platelet Count 151 K/mm3 (150-450); RBC Distribution Width CV 13.7 % (11.6-14.6); RBC Distribution Width SD 44.9 fl (35.1-43.9); Red Blood Count 4.49 M/mm3 (4.2-5.4); White Blood Count 5.4 K/mm3 (4.4-11.0)
[2019-02-15 12:32] LABS: Mean Platelet Vol. 12.4 fl (6.2-12.0)
[2019-02-15 13:02] LABS: BUN 21 mg/dL (7-18); Chloride 99 mmol/L (98-107); Creatinine, Serum 1.04 mg/dL (0.55-1.02); EST Glomerular Filtration Rate 57 mL/min (>60); Est Glom Filt Rate - Afr Amer 68 mL/min (>60); Glucose 85 mg/dL (74-106); Potassium 4.3 mmol/L (3.5-5.1); Sodium Level 135 mmol/L (136-145); Thyroid Stim Hormone (TSH) 0.47 uIU/mL (0.358-3.74)
[2019-02-16 22:54] LABS: Scan Indicated on CBC? Y/N YES- FLAGS NOTED
== END 2019-03-10 16:00 | disposition home or self-care (01) ==
LOC: LAB 10:45
PROVIDERS: Family Provider Internal Medicine; PCP Internal Medicine
DX: Z48.298 Encounter for aftercare following other organ transplant (principal); R79.9 Abnormal finding of blood chemistry, unspecified; D89.9 Disorder involving the immune mechanism, unspecified; B34.9 Viral infection, unspecified; D64.9 Anemia, unspecified; Z94.0 Kidney transplant status; Z51.81 Encounter for therapeutic drug level monitoring; Z11.59 Encounter for screening for other viral diseases
CPT/HCPCS: 36415; 80158; 82374; 82435; 82565; 82947; 84132; 84295; 84443; 84520; 85025; 85027

== ENCOUNTER 2019-03-15 10:37 | Outpatient (RCR) | payer MEDICARE, OTHER, SELFPAY ==
[2019-02-03 08:13] VITALS: BMI 17.6
[2019-03-15 12:07] LABS: Absolute Lymphocyte Count 0.49 X10^3/uL (0.83-4.51); Basophil# 0.05 X10^3/uL; Eosinophils% 1.9 % (0-5); Hematocrit 41.7 % (37-47); Hemoglobin 14.1 g/dL (12.0-15.0); Lymphocyte # 0.49 X10^3/ul (4.0); Lymphocyte % 9.5 % (19-41); Mean Corp Hgb Conc 33.8 g/dL (32-36); Mean Corpuscular Hgb 30.7 pg (27.0-32.0); Mean Corpuscular Volume 90.8 fL (81-99); Mean Platelet Vol. 12.3 fl (6.2-12.0); Monocyte# 0.45 X10^3/uL; Monocyte% 8.7 % (0-10); NRBC Flagged by Analyzer 0 % (0-5); Neutrophil # 4.03 X10^3/uL (2.7-7.7); Neutrophil % 78.1 % (47-70); POSITIVE DIFFERENTIAL YES; Platelet Count 138 K/mm3 (150-450); RBC Distribution Width CV 12.9 % (11.6-14.6); RBC Distribution Width SD 42.3 fl (35.1-43.9); Red Blood Count 4.59 M/mm3 (4.2-5.4); White Blood Count 5.2 K/mm3 (4.4-11.0)
[2019-03-15 12:13] LABS: Differential Indicated SCAN CRITERIA MET
[2019-03-15 12:39] LABS: Anisocytosis 1+; Platelet Estimate SLT DEC (ADEQ); Red Cell Morphology N CHROM NORMAL (NORM C&C)
[2019-03-15 13:06] LABS: AST(SGOT) 26 U/L (15-37); Alanine Aminotransfer ALT/SGPT 30 U/L (13-56); Albumin, Serum 4.2 g/dL (3.2-5.0); Alkaline Phosphatase 47 U/L (45-117); BUN 16 mg/dL (7-18); Calcium,Total 9.9 mg/dL (8.5-10.1); Chloride 100 mmol/L (98-107); Cholesterol 249 mg/dL (200); Creatinine, Serum 1.05 mg/dL (0.55-1.02); EST Glomerular Filtration Rate 56 mL/min (>60); Est Glom Filt Rate - Afr Amer 68 mL/min (>60); Ferritin 1067 ng/mL (8-252); Glucose 80 mg/dL (74-106); High Density Lipoprotein 111 mg/dL; Iron 69 ug/dL (50-170); Iron Binding Capacity,Total 301 ug/dL (250-450); Magnesium 1.8 mg/dL (1.6-2.6); PERCENT IRON SATURATION 22.9 % (15.0-55.0); Phosphorus 3.1 mg/dL (2.5-4.9); Potassium 4.1 mmol/L (3.5-5.1); Sodium Level 136 mmol/L (136-145); Triglycerides 96 mg/dL; Very Low Density Lipoprotein 19 mg/dL (5-40)
[2019-03-17 11:42] LABS: Cyclosporine 514 ng/mL (100-400); Transferrin 221 mg/dL (200-370)
== END 2019-03-15 12:00 | disposition home or self-care (01) ==
LOC: LAB 10:37
PROVIDERS: Family Provider Internal Medicine; PCP Internal Medicine
DX: Z48.298 Encounter for aftercare following other organ transplant (principal); R79.9 Abnormal finding of blood chemistry, unspecified; D89.9 Disorder involving the immune mechanism, unspecified; B34.9 Viral infection, unspecified; D64.9 Anemia, unspecified; Z94.0 Kidney transplant status; Z51.81 Encounter for therapeutic drug level monitoring; Z11.59 Encounter for screening for other viral diseases
CPT/HCPCS: 36415; 80061; 80158; 82040; 82247; 82310; 82374; 82435; 82565; 82728; 82947; 83540; 83550; 83735; 84075; 84100; 84132; 84295; 84450; 84460; 84466; 84520; 84550; 85025

== ENCOUNTER 2019-04-14 10:36 | Outpatient (RCR) | payer MEDICARE, OTHER, SELFPAY ==
[2019-02-03 08:13] VITALS: BMI 17.6
[2019-04-14 11:44] LABS: Hematocrit 44.7 % (37-47); Hemoglobin 14.3 g/dL (12.0-15.0); Mean Corpuscular Hgb 29.6 pg (27.0-32.0); Mean Corpuscular Volume 92.5 fL (81-99); Red Blood Count 4.83 M/mm3 (4.2-5.4); White Blood Count 5.7 K/mm3 (4.4-11.0)
[2019-04-14 11:45] LABS: Absolute Lymphocyte Count 0.31 X10^3/uL (0.83-4.51); Absolute Neutrophil Count 4.9 X10^3/uL (2.0-7.7); Basophil# 0.04 X10^3/uL; Basophil% 0.7 % (0-1); Eosinophil# 0.07 X10^3/uL; Eosinophils% 1.2 % (0-5); Lymphocyte # 0.31 X10^3/ul (4.0); Lymphocyte % 5.4 % (19-41); Mean Platelet Vol. 12.1 fl (6.2-12.0); Monocyte# 0.36 X10^3/uL; Monocyte% 6.3 % (0-10); NRBC Flagged by Analyzer 0 % (0-5); Neutrophil # 4.88 X10^3/uL (2.7-7.7); Neutrophil % 85.9 % (47-70); POSITIVE DIFFERENTIAL YES; Platelet Count 163 K/mm3 (150-450); RBC Distribution Width CV 12.9 % (11.6-14.6); RBC Distribution Width SD 43.7 fl (35.1-43.9)
[2019-04-14 11:49] LABS: Differential Indicated SCAN CRITERIA MET
[2019-04-14 12:02] LABS: BUN 22 mg/dL (7-18); Chloride 100 mmol/L (98-107); Creatinine, Serum 1.07 mg/dL (0.55-1.02); EST Glomerular Filtration Rate 55 mL/min (>60); Est Glom Filt Rate - Afr Amer 66 mL/min (>60); Glucose 80 mg/dL (74-106); Potassium 4.1 mmol/L (3.5-5.1); Sodium Level 136 mmol/L (136-145)
[2019-04-16 12:30] LABS: Cyclosporine 550 ng/mL (100-400)
== END 2019-04-14 11:00 | disposition home or self-care (01) ==
LOC: LAB 10:36
PROVIDERS: Family Provider Internal Medicine; PCP Internal Medicine
DX: Z48.298 Encounter for aftercare following other organ transplant (principal); R79.9 Abnormal finding of blood chemistry, unspecified; D89.9 Disorder involving the immune mechanism, unspecified; B34.9 Viral infection, unspecified; D64.9 Anemia, unspecified; Z94.0 Kidney transplant status; Z51.81 Encounter for therapeutic drug level monitoring; Z11.59 Encounter for screening for other viral diseases
CPT/HCPCS: 80158; 82374; 82435; 82565; 82947; 84132; 84295; 84520; 85025

== ENCOUNTER 2019-05-17 10:35 | Outpatient (RCR) | payer MEDICARE, OTHER, SELFPAY ==
[2019-02-03 08:13] VITALS: BMI 17.6
[2019-05-17 11:35] LABS: Absolute Lymphocyte Count 0.42 X10^3/uL (0.83-4.51); Absolute Neutrophil Count 4.5 X10^3/uL (2.0-7.7); Basophil# 0.02 X10^3/uL; Basophil% 0.4 % (0-1); Eosinophil# 0.09 X10^3/uL; Eosinophils% 1.6 % (0-5); Hematocrit 43.6 % (37-47); Hemoglobin 14.1 g/dL (12.0-15.0); Lymphocyte # 0.42 X10^3/ul (4.0); Lymphocyte % 7.6 % (19-41); Mean Corp Hgb Conc 32.3 g/dL (32-36); Mean Corpuscular Hgb 29.6 pg (27.0-32.0); Mean Corpuscular Volume 91.6 fL (81-99); Mean Platelet Vol. 12.2 fl (6.2-12.0); Monocyte# 0.49 X10^3/uL; Monocyte% 8.9 % (0-10); NRBC Flagged by Analyzer 0 % (0-5); Neutrophil # 4.46 X10^3/uL (2.7-7.7); Neutrophil % 81.1 % (47-70); POSITIVE DIFFERENTIAL YES; Platelet Count 144 K/mm3 (150-450); RBC Distribution Width CV 12.6 % (11.6-14.6); RBC Distribution Width SD 42.5 fl (35.1-43.9); Red Blood Count 4.76 M/mm3 (4.2-5.4); White Blood Count 5.5 K/mm3 (4.4-11.0)
[2019-05-17 11:39] LABS: Differential Indicated SCAN CRITERIA MET
[2019-05-17 12:00] LABS: BUN 21 mg/dL (7-18); Chloride 99 mmol/L (98-107); Creatinine, Serum 1.07 mg/dL (0.55-1.02); EST Glomerular Filtration Rate 55 mL/min (>60); Est Glom Filt Rate - Afr Amer 66 mL/min (>60); Glucose 86 mg/dL (74-106); Potassium 4.2 mmol/L (3.5-5.1); Sodium Level 134 mmol/L (136-145)
[2019-05-19 13:10] LABS: Cyclosporine 742 ng/mL (100-400)
== END 2019-05-17 18:00 | disposition home or self-care (01) ==
LOC: LAB 10:35
PROVIDERS: Family Provider Internal Medicine; PCP Internal Medicine
DX: Z48.298 Encounter for aftercare following other organ transplant (principal); R79.9 Abnormal finding of blood chemistry, unspecified; D89.9 Disorder involving the immune mechanism, unspecified; D64.9 Anemia, unspecified; D50.0 Iron deficiency anemia secondary to blood loss (chronic); R68.89 Other general symptoms and signs; Z94.0 Kidney transplant status; Z51.81 Encounter for therapeutic drug level monitoring; Z11.59 Encounter for screening for other viral diseases
CPT/HCPCS: 36415; 80158; 82374; 82435; 82565; 82947; 84132; 84295; 84520; 85025

== ENCOUNTER 2019-06-14 10:22 | Outpatient (RCR) | payer MEDICARE, OTHER, SELFPAY ==
[2019-02-03 08:13] VITALS: BMI 17.6
[2019-06-14 11:49] LABS: Absolute Lymphocyte Count 0.39 X10^3/uL (0.83-4.51); Basophil# 0.04 X10^3/uL; Basophil% 0.7 % (0-1); Eosinophil# 0.09 X10^3/uL; Eosinophils% 1.5 % (0-5); Hematocrit 41.6 % (37-47); Hemoglobin 13.5 g/dL (12.0-15.0); Lymphocyte # 0.39 X10^3/ul (4.0); Lymphocyte % 6.5 % (19-41); Mean Corp Hgb Conc 32.5 g/dL (32-36); Mean Corpuscular Hgb 29.7 pg (27.0-32.0); Mean Corpuscular Volume 91.6 fL (81-99); Mean Platelet Vol. 12.1 fl (6.2-12.0); Monocyte# 0.47 X10^3/uL; Monocyte% 7.8 % (0-10); NRBC Flagged by Analyzer 0 % (0-5); Neutrophil # 5.01 X10^3/uL (2.7-7.7); Neutrophil % 82.8 % (47-70); POSITIVE DIFFERENTIAL YES; Platelet Count 155 K/mm3 (150-450); RBC Distribution Width CV 12.9 % (11.6-14.6); RBC Distribution Width SD 43.3 fl (35.1-43.9); Red Blood Count 4.54 M/mm3 (4.2-5.4)
[2019-06-14 11:50] LABS: Differential Indicated SCAN CRITERIA MET
[2019-06-14 12:19] LABS: BUN 15 mg/dL (7-18); Chloride 98 mmol/L (98-107); Creatinine, Serum 1.02 mg/dL (0.55-1.02); EST Glomerular Filtration Rate 58 mL/min (>60); Est Glom Filt Rate - Afr Amer 70 mL/min (>60); Glucose 92 mg/dL (74-106); Potassium 4.1 mmol/L (3.5-5.1); Sodium Level 133 mmol/L (136-145)
[2019-06-17 14:46] LABS: Cyclosporine 593 ng/mL (100-400)
[2019-07-14 08:18] LABS: Anion Gap 8 (5-15)
== END 2019-06-14 18:00 | disposition home or self-care (01) ==
LOC: LAB 10:22
PROVIDERS: Family Provider Internal Medicine; PCP Internal Medicine
DX: Z48.298 Encounter for aftercare following other organ transplant (principal); R79.9 Abnormal finding of blood chemistry, unspecified; D89.9 Disorder involving the immune mechanism, unspecified; D50.0 Iron deficiency anemia secondary to blood loss (chronic); R68.89 Other general symptoms and signs; Z94.0 Kidney transplant status; Z11.59 Encounter for screening for other viral diseases; Z79.899 Other long term (current) drug therapy
CPT/HCPCS: 80051; 80158; 82374; 82435; 82565; 82947; 84132; 84295; 84520; 85025

== ENCOUNTER 2019-07-13 10:33 | Outpatient (RCR) | payer MEDICARE, OTHER, SELFPAY ==
[2019-02-03 08:13] VITALS: BMI 17.6
[2019-07-13 11:20] LABS: Absolute Lymphocyte Count 0.45 X10^3/uL (0.83-4.51); Absolute Neutrophil Count 3.4 X10^3/uL (2.0-7.7); Basophil# 0.03 X10^3/uL; Basophil% 0.7 % (0-1); Eosinophil# 0.11 X10^3/uL; Eosinophils% 2.5 % (0-5); Hematocrit 42.3 % (37-47); Hemoglobin 13.7 g/dL (12.0-15.0); Lymphocyte # 0.45 X10^3/ul (4.0); Lymphocyte % 10.1 % (19-41); Mean Corp Hgb Conc 32.4 g/dL (32-36); Mean Corpuscular Hgb 29.5 pg (27.0-32.0); Mean Platelet Vol. 12.1 fl (6.2-12.0); Monocyte# 0.42 X10^3/uL; Monocyte% 9.4 % (0-10); NRBC Flagged by Analyzer 0 % (0-5); Neutrophil # 3.43 X10^3/uL (2.7-7.7); Neutrophil % 76.9 % (47-70); POSITIVE DIFFERENTIAL YES; Platelet Count 130 K/mm3 (150-450); RBC Distribution Width CV 13.2 % (11.6-14.6); Red Blood Count 4.65 M/mm3 (4.2-5.4); White Blood Count 4.5 K/mm3 (4.4-11.0)
[2019-07-13 11:22] LABS: Differential Indicated SCAN CRITERIA MET
[2019-07-13 11:27] LABS: Protein, Urine (Random) 10.3 mg/dL (<11.9); Protein:Creat Ratio 72 mg/g CRE (0-200)
[2019-07-13 11:45] LABS: AST(SGOT) 33 U/L (15-37); Alanine Aminotransfer ALT/SGPT 40 U/L (13-56); Alkaline Phosphatase 44 U/L (45-117); BUN 16 mg/dL (7-18); Calcium,Total 9.5 mg/dL (8.5-10.1); Chloride 99 mmol/L (98-107); Cholesterol 239 mg/dL (200); Creatinine, Serum 1.12 mg/dL (0.55-1.02); EST Glomerular Filtration Rate 52 mL/min (>60); Est Glom Filt Rate - Afr Amer 63 mL/min (>60); Ferritin 1006 ng/mL (8-252); Glucose 84 mg/dL (74-106); High Density Lipoprotein 104 mg/dL; Iron 67 ug/dL (50-170); Iron Binding Capacity,Total 288 ug/dL (250-450); Magnesium 1.8 mg/dL (1.6-2.6); Phosphorus 3.1 mg/dL (2.5-4.9); Potassium 4.2 mmol/L (3.5-5.1); Sodium Level 135 mmol/L (136-145); Triglycerides 94 mg/dL; Uric Acid 4.9 mg/dL (2.6-6.0); Very Low Density Lipoprotein 19 mg/dL (5-40)
[2019-07-16 15:37] LABS: Cyclosporine 462 ng/mL (100-400); Transferrin 220 mg/dL (200-370)
[2019-08-17 10:46] LABS: BUN/Creat Ratio 14.3 RATIO (10-20)
== END 2019-07-13 18:00 | disposition home or self-care (01) ==
LOC: LAB 10:33
PROVIDERS: Family Provider Internal Medicine; PCP Internal Medicine
DX: Z94.0 Kidney transplant status (principal); Z48.298 Encounter for aftercare following other organ transplant; R79.9 Abnormal finding of blood chemistry, unspecified; D89.9 Disorder involving the immune mechanism, unspecified; D50.0 Iron deficiency anemia secondary to blood loss (chronic); R68.89 Other general symptoms and signs; Z11.59 Encounter for screening for other viral diseases; Z79.899 Other long term (current) drug therapy
CPT/HCPCS: 36415; 80061; 80069; 80158; 82040; 82247; 82310; 82374; 82435; 82565; 82570; 82728; 82947; 83540; 83550; 83735; 84075; 84100; 84132; 84156; 84295; 84450; 84460; 84466; 84520; 84550; 85025

== ENCOUNTER → 2019-08-06 07:52 | Outpatient (CLI) | payer MEDICARE, OTHER, SELFPAY ==
[2019-02-03 08:13] VITALS: BMI 17.6
[2019-08-06 08:00] VITALS: BP 123/59; PULSE 65; RESP 18; TEMP 35.8; O2SAT 100; BMI 18.3
[2019-08-06] MEDS: DENOSUMAB 60 MG/ML ML SQ (08:01)
== END ==
PROVIDERS: Family Provider Internal Medicine; PCP Internal Medicine; Referring Provider Internal Medicine; Visit Provider Internal Medicine
DX: M81.0 Age-related osteoporosis without current pathological fracture (principal)
CPT/HCPCS: 96372; J0897

== ENCOUNTER 2019-08-16 10:31 | Outpatient (RCR) | payer MEDICARE, OTHER, SELFPAY ==
[2019-08-06 08:00] VITALS: BMI 18.3
[2019-08-16 11:30] LABS: Absolute Lymphocyte Count 0.47 X10^3/uL (0.83-4.51); Absolute Neutrophil Count 3.9 X10^3/uL (2.0-7.7); Basophil# 0.04 X10^3/uL; Basophil% 0.8 % (0-1); Eosinophil# 0.09 X10^3/uL; Eosinophils% 1.8 % (0-5); Hematocrit 41.6 % (37-47); Hemoglobin 13.3 g/dL (12.0-15.0); Lymphocyte # 0.47 X10^3/ul (4.0); Lymphocyte % 9.3 % (19-41); Mean Corpuscular Volume 90.6 fL (81-99); Mean Platelet Vol. 12.2 fl (6.2-12.0); Monocyte# 0.52 X10^3/uL; Monocyte% 10.3 % (0-10); NRBC Flagged by Analyzer 0 % (0-5); Neutrophil # 3.94 X10^3/uL (2.7-7.7); Neutrophil % 77.6 % (47-70); POSITIVE DIFFERENTIAL YES; Platelet Count 135 K/mm3 (150-450); RBC Distribution Width CV 13.1 % (11.6-14.6); RBC Distribution Width SD 43.2 fl (35.1-43.9); Red Blood Count 4.59 M/mm3 (4.2-5.4); White Blood Count 5.1 K/mm3 (4.4-11.0)
[2019-08-16 11:31] LABS: Differential Indicated SCAN CRITERIA MET
[2019-08-16 11:50] LABS: Anion Gap 4 (5-15); BUN 22 mg/dL (7-18); Chloride 102 mmol/L (98-107); EST Glomerular Filtration Rate 48 mL/min (>60); Est Glom Filt Rate - Afr Amer 58 mL/min (>60); Glucose 75 mg/dL (74-106); Potassium 4.4 mmol/L (3.5-5.1); Sodium Level 134 mmol/L (136-145)
[2019-08-18 21:05] LABS: Cyclosporine 677 ng/mL (100-400)
== END 2019-08-16 18:00 | disposition home or self-care (01) ==
LOC: LAB 10:31
PROVIDERS: Family Provider Internal Medicine; PCP Internal Medicine
DX: Z94.0 Kidney transplant status (principal); Z48.298 Encounter for aftercare following other organ transplant; R79.9 Abnormal finding of blood chemistry, unspecified; D89.9 Disorder involving the immune mechanism, unspecified; D50.0 Iron deficiency anemia secondary to blood loss (chronic); R68.89 Other general symptoms and signs; Z11.59 Encounter for screening for other viral diseases; Z79.899 Other long term (current) drug therapy
CPT/HCPCS: 36415; 80051; 80158; 82565; 82947; 84520; 85025

== ENCOUNTER 2019-09-13 10:30 | Outpatient (RCR) | payer MEDICARE, OTHER, SELFPAY ==
[2019-08-06 08:00] VITALS: BMI 18.3
[2019-09-13 11:11] LABS: Absolute Lymphocyte Count 0.42 X10^3/uL (0.83-4.51); Absolute Neutrophil Count 3.7 X10^3/uL (2.0-7.7); Basophil# 0.03 X10^3/uL; Basophil% 0.6 % (0-1); Eosinophils% 2.1 % (0-5); Hematocrit 41.9 % (37-47); Hemoglobin 13.9 g/dL (12.0-15.0); Lymphocyte # 0.42 X10^3/ul (4.0); Lymphocyte % 8.9 % (19-41); Mean Corp Hgb Conc 33.2 g/dL (32-36); Mean Corpuscular Hgb 29.7 pg (27.0-32.0); Mean Corpuscular Volume 89.5 fL (81-99); Mean Platelet Vol. 11.4 fl (6.2-12.0); Monocyte# 0.47 X10^3/uL; NRBC Flagged by Analyzer 0 % (0-5); Neutrophil # 3.66 X10^3/uL (2.7-7.7); POSITIVE DIFFERENTIAL YES; Platelet Count 160 K/mm3 (150-450); RBC Distribution Width CV 12.7 % (11.6-14.6); RBC Distribution Width SD 41.4 fl (35.1-43.9); Red Blood Count 4.68 M/mm3 (4.2-5.4); White Blood Count 4.7 K/mm3 (4.4-11.0)
[2019-09-13 11:14] LABS: Differential Indicated SCAN CRITERIA MET
[2019-09-13 11:35] LABS: Anion Gap 5 (5-15); BUN 16 mg/dL (7-18); Chloride 99 mmol/L (98-107); Creatinine, Serum 1.17 mg/dL (0.55-1.02); EST Glomerular Filtration Rate 49 mL/min (>60); Est Glom Filt Rate - Afr Amer 60 mL/min (>60); Glucose 76 mg/dL (74-106); Potassium 4.3 mmol/L (3.5-5.1); Sodium Level 133 mmol/L (136-145)
[2019-09-15 13:51] LABS: Cyclosporine 593 ng/mL (100-400)
== END 2019-09-13 18:00 | disposition home or self-care (01) ==
LOC: LAB 10:30
PROVIDERS: Family Provider Internal Medicine; PCP Internal Medicine
DX: Z94.0 Kidney transplant status (principal); Z48.298 Encounter for aftercare following other organ transplant; R79.9 Abnormal finding of blood chemistry, unspecified; D89.9 Disorder involving the immune mechanism, unspecified; D50.0 Iron deficiency anemia secondary to blood loss (chronic); R68.89 Other general symptoms and signs; Z11.59 Encounter for screening for other viral diseases; Z79.899 Other long term (current) drug therapy
CPT/HCPCS: 36415; 80051; 80158; 82565; 82947; 84520; 85025

== ENCOUNTER 2019-10-11 10:35 | Outpatient (RCR) | payer MEDICARE, OTHER, SELFPAY ==
[2019-08-06 08:00] VITALS: BMI 18.3
[2019-10-11 11:39] LABS: Absolute Lymphocyte Count 0.45 X10^3/uL (0.83-4.51); Absolute Neutrophil Count 3.6 X10^3/uL (2.0-7.7); Basophil# 0.05 X10^3/uL; Basophil% 1.1 % (0-1); Eosinophil# 0.08 X10^3/uL; Eosinophils% 1.7 % (0-5); Hemoglobin 13.5 g/dL (12.0-15.0); Lymphocyte # 0.45 X10^3/ul (4.0); Lymphocyte % 9.7 % (19-41); Mean Corp Hgb Conc 32.9 g/dL (32-36); Mean Corpuscular Hgb 29.8 pg (27.0-32.0); Mean Corpuscular Volume 90.5 fL (81-99); Monocyte# 0.49 X10^3/uL; Monocyte% 10.5 % (0-10); NRBC Flagged by Analyzer 0 % (0-5); Neutrophil # 3.57 X10^3/uL (2.7-7.7); Neutrophil % 76.6 % (47-70); POSITIVE DIFFERENTIAL YES; Platelet Count 139 K/mm3 (150-450); RBC Distribution Width CV 13.1 % (11.6-14.6); Red Blood Count 4.53 M/mm3 (4.2-5.4); White Blood Count 4.7 K/mm3 (4.4-11.0)
[2019-10-11 11:40] LABS: Differential Indicated SCAN CRITERIA MET
[2019-10-11 12:06] LABS: Anion Gap 4 (5-15); BUN 14 mg/dL (7-18); Chloride 100 mmol/L (98-107); EST Glomerular Filtration Rate 59 mL/min (>60); Est Glom Filt Rate - Afr Amer 71 mL/min (>60); Glucose 86 mg/dL (74-106); Potassium 3.9 mmol/L (3.5-5.1); Sodium Level 133 mmol/L (136-145)
[2019-10-12 20:42] LABS: Cyclosporine 830 ng/mL (100-400)
== END 2019-10-11 18:00 | disposition home or self-care (01) ==
LOC: LAB 10:35
PROVIDERS: Family Provider Internal Medicine; PCP Internal Medicine
DX: Z94.0 Kidney transplant status (principal); Z48.298 Encounter for aftercare following other organ transplant; R79.9 Abnormal finding of blood chemistry, unspecified; D89.9 Disorder involving the immune mechanism, unspecified; D50.0 Iron deficiency anemia secondary to blood loss (chronic); R68.89 Other general symptoms and signs; Z11.59 Encounter for screening for other viral diseases; Z79.899 Other long term (current) drug therapy
CPT/HCPCS: 36415; 80051; 80158; 82565; 82947; 84520; 85025

== ENCOUNTER → 2019-10-26 09:23 | Outpatient (CLI) | payer MEDICARE, OTHER, SELFPAY ==
[2019-02-03 08:13] VITALS: BMI 17.6
[2019-08-06 08:00] VITALS: BMI 18.3
--- NOTE | 2019-10-26 09:25 | BI_ITS ---
MAMMOGRAPHY - BILATERAL SCREENING REASON FOR EXAM: Female, 63 years old. Routine annual screening examination. PERTINENT HISTORY: Sister with breast cancer. History of prior right ultrasound-guided breast biopsy. TECHNIQUE: Digital bilateral breast emily (3D mammographic acquisition) in the CC and MLO projections. 2-D mediolateral oblique (MLO) and craniocaudad (CC) views of both breasts were obtained. CAD: Full Field Digital Mammography with Computer Added Detection was performed. COMPARISON: Comparison is made with prior examination dated October 22, 2018 and August 12, 2017. FINDINGS: Breast Composition: The breasts are heterogeneously dense, which may obscure small masses. There are no dominant masses or suspicious calcifications. Once again, a tissue clip marker is seen in the deep upper lateral aspect of the right breast from prior biopsy. No other significant abnormalities are identified. There has been no significant change since the prior study. BI/SCREEN MAMM (CAD) W/EMILY BILAT IMPRESSION: Stable bilateral screening mammogram. Yearly follow-up mammogram recommended. (A) ASSESSMENT CATEGORY: BIRADS Category 2: Benign. A letter regarding these results will be sent to the patient by the facility within 30 days. Approximately 10% of breast cancers are not detected by mammography. A normal mammogram should not delay biopsy of a clinically suspicious abnormality. [id number] Electronically Signed: Willie Anderson, at 10:57 EDT , Service support ,
--- NOTE | 2019-10-26 09:28 | BD_ITS ---
STUDY: DUAL ENERGY X-RAY ABSORPTIOMETRY / DXA REASON FOR EXAM: Female, 63 years old. 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 COMPARISON: Comparison is made with prior examination dated August 12, 2017. FINDINGS: Lumbar Spine (L1-L4): g/cm2 (1.058) / T-score (-1.0) / Z-score (0.6) Findings are suggestive of normal bone density with a low fracture risk. Left Femur Total: g/cm2 (0.633) / T-score (-3.0) / Z-score (-1.7) Left Femoral Neck: g/cm2 (0.639) / T-score (-2.9) / Z-score (-1.4) Right Femur Total: g/cm2 (0.630) / T-score (-3.0) / Z-score (-1.8) Right Femoral Neck: g/cm2 (0.683) / T-score (-2.6) / Z-score (-1.1) The T-Scores on the most recent prior examination were: Lumbar Spine (L1-L4): There has been improvement of bone density since the previous examination. Left Femur Total: which represents a worsening of 4.5%. Right Femur Total: which represents an improvement of 4.3%. BD/Dexa Bone Density Study IMPRESSION: The patient is considered osteoporotic as outlined below according to World Jamison Organization (WHO) criteria with a high fracture risk. There has been improvement of bone density since the previous examination. Reference Information: The T-score is the number of standard deviations above or below the standard which is normal for young adults at their peak bone mineral density. The World Health Organization (WHO) interprets the T-scores as follows: Above -1 Normal bone density Between -1 and -2.5 Osteopenia Equal to / or below -2.5 Osteoporosis As a practical clinical guideline, osteopenia may be graded as follows: Mild -1 through -1.5 Moderate -1.6 through -2.0 Severe -2.1 through -2.4 The Z-score is the number of standard deviations above or below age-matched controls. A Z-score of less than -1.5 would be considered abnormal. References: 1. NIH Osteoporosis and Related Bone Diseases http://www.osteo.org 2. International Society for Clinical Densitometry http://www.iscd.org 3. National Osteoporosis Foundation http://www.nof.org Electronically Signed: Willie Anderson, at 11:15 EDT , Service support ,
== END ==
PROVIDERS: Family Provider Internal Medicine; PCP Internal Medicine; Referring Provider Internal Medicine; Visit Provider Internal Medicine
DX: Z12.31 Encounter for screening mammogram for malignant neoplasm of breast (principal); Z78.0 Asymptomatic menopausal state
CPT/HCPCS: 77063; 77067; 77080

== ENCOUNTER → 2020-02-08 07:58 | Outpatient (CLI) | payer MEDICARE, OTHER, SELFPAY ==
[2019-08-06 08:00] VITALS: BMI 18.3
[2020-02-08 08:07] VITALS: BP 123/58; PULSE 65; RESP 16; TEMP 36.2; O2SAT 99; BMI 17.6
[2020-02-08] MEDS: DENOSUMAB 60 MG/ML SQ (08:12)
== END ==
PROVIDERS: Family Provider Internal Medicine; PCP Internal Medicine; Referring Provider Internal Medicine; Visit Provider Internal Medicine
DX: M81.0 Age-related osteoporosis without current pathological fracture (principal)
CPT/HCPCS: 96372; J0897

== ENCOUNTER → 2020-04-24 07:50 | Outpatient (CLI) | payer MEDICARE, OTHER, SELFPAY ==
[2020-02-08 08:07] VITALS: BMI 17.6
--- NOTE | 2020-04-24 07:52 | RDU_ITS ---
Reason For Study: Renal artery stenosis Right Renal Artery Left Renal Artery Right renal artery ostium Left kidney not visualized. 171.9/10.3 RSV/EDV. Right renal artery proximal 149.3/10.3 PSV/EDV. Right renal artery mid 146.1/16.8 PSV/EDV. Right renal artery distal 112.0/21.3 PSV/EDV. Right RAR 2.6. Pt has a history of right kidney transplant. Renal artery measures .78 x .74 cm. Right Renal Parenchyma Upper Pole Medula 32.6/9.3 PSV/EDV. Right upper pole medulla EDR .29 . Right upper pole medulla R.I. .71 . Upper Travis Cortx 21.0/6.7 PSV/EDV. Right upper pole cortex EDR .32 . Right upper pole cortex R.I. .68 . Right lower Pole medulla 23.9/6.6 PSV/EDV . Right lower pole medulla EDR .27 . Right lower pole medulla R.I. .73 . Lower Pole Cortex 36.7/8.4 PSV/EDV. Right lower pole cortex EDR .23 . Right lower pole cortex R.I. .77 . Right Renal Hilar Right Hilar avg 82.8/10.0 PSV/EDV. Right hilar acceleration time 80.0 m/sec. Right Renal Dimensions Right kidney size 12 cm . Right cortical dimension 1.29 cm . Aorta Proximal abdominal aorta 2.04 x 2.12 cm . Proximal abdominal aorta peak systolic velocity is 67.3 cm/sec . Distal abdominal aorta 1.33 x 1.38 cm . Distal abdominal aorta peak systolic velocity is 116.8 cm/sec . Normal right renal vein. Interpretation Summary Dimensions of the intra-abdominal aorta appear normal, without evidence of aneurysmal dilatation. Renal artery velocities are normal. The acceleration time is normal. The renal-aortic ratio is normal. There is no evidence of significant renal artery stenosis. Renovascular resistance is mildly elevated. The cortical dimension is normal. Kidney size is normal. Ordering Physician: Gracie Johnson Performed By: Maksim Walsh RVT
== END ==
PROVIDERS: PCP Internal Medicine; Referring Provider Internal Medicine; Visit Provider Internal Medicine
DX: I70.1 Atherosclerosis of renal artery (principal)
CPT/HCPCS: 93975

== ENCOUNTER → 2020-08-09 07:58 | Outpatient (CLI) | payer MEDICARE, OTHER, SELFPAY ==
[2019-08-06 08:00] VITALS: BMI 18.3
[2020-02-08 08:07] VITALS: BMI 17.6
[2020-08-09 08:09] VITALS: BP 118/51; PULSE 56; RESP 16; TEMP 35.8; O2SAT 100; BMI 17.6
[2020-08-09] MEDS: DENOSUMAB 60 MG/ML SQ (08:30)
== END ==
PROVIDERS: PCP Internal Medicine; Referring Provider Internal Medicine; Visit Provider Internal Medicine
DX: M81.0 Age-related osteoporosis without current pathological fracture (principal)
CPT/HCPCS: 96372; J0897

== ENCOUNTER → 2020-10-26 07:02 | Outpatient (CLI) | payer MEDICARE, OTHER, SELFPAY ==
[2020-02-08 08:07] VITALS: BMI 17.6
[2020-08-09 08:09] VITALS: BMI 17.6
--- NOTE | 2020-10-26 07:04 | BI_ITS ---
MAMMOGRAPHY - BILATERAL SCREENING REASON FOR EXAM: Female, 64 years old. Routine annual screening examination. PERTINENT HISTORY: Sister with breast cancer. TECHNIQUE: Digital bilateral breast emily (3D mammographic acquisition) in the CC and MLO projections. 2-D mediolateral oblique (MLO) and craniocaudad (CC) views of both breasts were obtained. CAD: Full Field Digital Mammography with Computer Added Detection was performed. COMPARISON: Comparison is made with prior study dated 10/26/2019 and 10/22/2018. FINDINGS: Breast Composition: The breasts are extremely dense, which lowers the sensitivity of mammography. There are no dominant masses or suspicious calcifications. A tissue clip marker is once again seen in the upper lateral aspect of the right breast. No other significant abnormalities are identified. There has been no significant change since the prior study. BI/SCRN MAMM (CAD)W/EMILY BILAT IMPRESSION: Stable bilateral screening mammogram. Yearly follow-up mammogram recommended. (A) ASSESSMENT CATEGORY: BIRADS Category 2: Benign. A letter regarding these results will be sent to the patient by the facility within 30 days. Approximately 10% of breast cancers are not detected by mammography. A normal mammogram should not delay biopsy of a clinically suspicious abnormality. [id number] Electronically Signed: Willie Anderson MD at 8:14 EDT , Service support ,
== END ==
PROVIDERS: PCP Internal Medicine; Referring Provider Internal Medicine; Visit Provider Internal Medicine
DX: Z12.31 Encounter for screening mammogram for malignant neoplasm of breast (principal)
CPT/HCPCS: 77063; 77067

== ENCOUNTER → 2021-01-31 07:54 | Outpatient (CLI) | payer MEDICARE, OTHER, SELFPAY ==
[2020-02-08 08:07] VITALS: BMI 17.6
[2020-08-09 08:09] VITALS: BMI 17.6
[2021-01-31 08:01] VITALS: BP 115/52; PULSE 62; RESP 16; TEMP 36.3; O2SAT 100; BMI 17.6
[2021-01-31] MEDS: DENOSUMAB 60 MG/ML SC (08:09)
== END ==
PROVIDERS: PCP Internal Medicine; Referring Provider Internal Medicine; Visit Provider Internal Medicine
DX: M81.0 Age-related osteoporosis without current pathological fracture (principal)
CPT/HCPCS: 96372; J0897

== ENCOUNTER → 2021-07-31 07:56 | Outpatient (CLI) | payer MEDICARE, OTHER, SELFPAY ==
[2020-08-09 08:09] VITALS: BMI 17.6
[2021-07-31 07:55] VITALS: BP 116/54; PULSE 62; RESP 16; TEMP 36.6; O2SAT 97
[2021-07-31] MEDS: DENOSUMAB 60 MG/ML SC (08:01)
== END ==
PROVIDERS: PCP Internal Medicine; Referring Provider Internal Medicine; Visit Provider Internal Medicine
DX: M81.0 Age-related osteoporosis without current pathological fracture (principal)
CPT/HCPCS: 96372; J0897

== ENCOUNTER 2021-08-08 14:21 | Outpatient (CLI) | payer MEDICARE, OTHER, SELFPAY ==
[2021-08-08 14:34] VITALS: BP 135/81; PULSE 82; RESP 16; TEMP 37; O2SAT 98; BMI 17.5
[2021-08-08] MEDS: 0.9% Saline Lock 10 ML Syringe IV (14:37)
--- NOTE | 2021-08-08 14:57 | NURSING ---
pt c/o of back pain. 05/20 pain. infusion stopped.
[2021-08-08 14:58] VITALS: BP 158/105; PULSE 72; RESP 16; O2SAT 100
--- NOTE | 2021-08-08 15:05 | NURSING ---
Pt states back pain is gone. IV infusion started at 1/2 rate.
[2021-08-08 15:57] VITALS: BP 144/76; PULSE 68; RESP 16; TEMP 37.2; O2SAT 95
[2021-08-08 16:45] VITALS: BP 150/71; PULSE 72; RESP 16; TEMP 36.8; O2SAT 100
== END 2021-08-08 16:51 | disposition home or self-care (01) ==
LOC: MS3OUT 14:21 → MS3 14:22
PROVIDERS: PCP Internal Medicine; Referring Provider Nurse Practitioner Adult Health; Visit Provider Nurse Practitioner Adult Health
DX: Z23 Encounter for immunization (principal); U07.1 COVID-19
CPT/HCPCS: J7050; M0245; Q0245; A4216

== ENCOUNTER 2021-10-31 09:45 | Outpatient (CLI) | payer MEDICARE, OTHER, SELFPAY ==
--- NOTE | 2021-10-31 09:48 | BI_ITS ---
MAMMOGRAPHY - BILATERAL SCREENING REASON FOR EXAM: Female, 66 years old. Routine annual screening examination. PERTINENT HISTORY: Sister with breast cancer. Prior right ultrasound-guided breast biopsy. TECHNIQUE: Digital bilateral breast emily (3D mammographic acquisition) in the CC and MLO projections. 2-D mediolateral oblique (MLO) and craniocaudad (CC) views of both breasts were obtained. CAD: Full Field Digital Mammography with Computer Added Detection was performed. COMPARISON: Comparison is made with prior examination dated 10/26/2020 and 10/26/2019. FINDINGS: Breast Composition: The breasts are extremely dense, which lowers the sensitivity of mammography. There are no dominant masses or suspicious calcifications. A tissue clip marker is once again seen in the deep upper lateral aspect of the right breast. No other significant abnormalities are identified. There has been no significant change since the prior study. BI/SCRN MAMM (CAD)W/EMILY BILAT IMPRESSION: Stable bilateral screening mammogram. Yearly follow-up mammogram recommended. (A) ASSESSMENT CATEGORY: BIRADS Category 2: Benign. A letter regarding these results will be sent to the patient by the facility within 30 days. Approximately 10% of breast cancers are not detected by mammography. A normal mammogram should not delay biopsy of a clinically suspicious abnormality. [id number] Electronically Signed: Willie Anderson MD at 11:04 EDT ,
--- NOTE | 2021-10-31 09:55 | BD_ITS ---
STUDY: DUAL ENERGY X-RAY ABSORPTIOMETRY / DXA REASON FOR EXAM: Female, 66 years old. M810. The patient is postmenopausal. TECHNIQUE: Bone Mineral Density (BMD) measurements of lumbar spine and bilateral hips were obtained. COMPARISON: Comparison is made with prior study dated 10/26/2019. FINDINGS: Lumbar Spine (L1-L4): g/cm2 (0.953) / T-score (-0.9) / Z-score (1.1) Findings are suggestive of normal bone density with a low fracture risk. Left Femur Total: g/cm2 (0.640) / T-score (-2.5) / Z-score (-1.1) Left Femoral Neck: g/cm2 (0.506) / T-score (-3.1) / Z-score (-1.4) Right Femur Total: g/cm2 (0.655) / T-score (-2.3) / Z-score (-1.0) Right Femoral Neck: g/cm2 (0.557) / T-score (-2.6) / Z-score (-0.9) The T-Scores on the most recent prior examination were: Lumbar Spine (L1-L4): There has been improvement of bone density since the previous examination. Left Femur Total: which represents an improvement of 10.7%. Right Femur Total: which represents an improvement of 14%. BD/Dexa Bone Density Study IMPRESSION: The patient is considered osteoporotic as outlined below according to World Jamison Organization (WHO) criteria with a high fracture risk. There has been improvement of bone density since the previous examination. Reference Information: The T-score is the number of standard deviations above or below the standard which is normal for young adults at their peak bone mineral density. The World Health Organization (WHO) interprets the T-scores as follows: Above -1 Normal bone density Between -1 and -2.5 Osteopenia Equal to / or below -2.5 Osteoporosis As a practical clinical guideline, osteopenia may be graded as follows: Mild -1 through -1.5 Moderate -1.6 through -2.0 Severe -2.1 through -2.4 The Z-score is the number of standard deviations above or below age-matched controls. A Z-score of less than -1.5 would be considered abnormal. References: 1. NIH Osteoporosis and Related Bone Diseases www osteo.org 2. International Society for Clinical Densitometry www iscd.org 3. National Osteoporosis Foundation www nof.org Electronically Signed: Willie Anderson MD at 12:31 EDT ,
== END 2021-10-31 23:59 | disposition home or self-care (01) ==
LOC: OPBI 09:46
PROVIDERS: PCP Internal Medicine; Visit Provider Internal Medicine
DX: Z12.31 Encounter for screening mammogram for malignant neoplasm of breast (principal); M81.0 Age-related osteoporosis without current pathological fracture
CPT/HCPCS: 77063; 77067; 77080

== ENCOUNTER 2022-01-21 15:13 | Outpatient (CLI) | payer MEDICARE, OTHER, SELFPAY ==
[2022-01-21 15:27] VITALS: BP 135/64; PULSE 76; RESP 16; TEMP 37.1; O2SAT 98; BMI 17.5
[2022-01-21] MEDS: 0.9% Saline Lock 10 ML Syringe IV ×4 (15:39→16:05)
[2022-01-21 15:41] VITALS: BP 149/86; PULSE 79; O2SAT 98
[2022-01-21] MEDS: BEBTELOVIMAB 175 MG/2 ML VIAL IV (15:41)
[2022-01-21] MEDS: MethylPREDNISolone 125 MG/2 ML Vial IV (15:48)
[2022-01-21] MEDS: DiphenhydrAMINE 50 MG/ML Syringe IV (15:53)
--- NOTE | 2022-01-21 16:11 | NURSING ---
As the infusion was finishing being given patient had severe back pain similar to the reaction she had with her las infusion. infusion was stopped and solumedrol was given. patient still had the pain so benadryl was given. back pain eventually went away. vital signs stable during the back pain 1545 111/78 84 100% 1550 146/84 81 100% 1558 140/67 83 100% 1605 150/ 67 74 100% patient resting now Carla Carrasco was called and informed of the reaction and what PRN medications were given
[2022-01-21 16:21] VITALS: BP 114/63; PULSE 71; RESP 16; TEMP 37.2; O2SAT 99
--- NOTE | 2022-01-21 16:50 | NURSING ---
Resting comfortably. back pain gone. 98% 70 121/62
[2022-01-21 17:05] VITALS: BP 137/61; PULSE 69; RESP 16; TEMP 37; O2SAT 100
== END 2022-01-21 17:11 | disposition home or self-care (01) ==
LOC: MS3OUT 15:13 → MS2 15:14
PROVIDERS: PCP Internal Medicine; Referring Provider Nurse Practitioner Adult Health; Visit Provider Nurse Practitioner Adult Health
DX: U07.1 COVID-19 (principal)
CPT/HCPCS: M0222; Q0222; A4216

== ENCOUNTER → 2022-01-29 | Outpatient (CLI) | payer MEDICARE, OTHER, SELFPAY ==
[2022-01-29 08:07] VITALS: BP 109/56; PULSE 67; RESP 14; TEMP 36.6; O2SAT 100; BMI 17.5
[2022-01-29] MEDS: DENOSUMAB 60 MG/ML SC (08:09)
== END | disposition home or self-care (01) ==
LOC: MEDOUTP 07:59
PROVIDERS: PCP Internal Medicine; Referring Provider Internal Medicine; Visit Provider Internal Medicine
DX: M81.0 Age-related osteoporosis without current pathological fracture (principal)
CPT/HCPCS: 96372; J0897

== ENCOUNTER → 2022-07-30 | Outpatient (CLI) | payer MEDICARE, OTHER, SELFPAY ==
[2022-07-30] MEDS: DENOSUMAB 60 MG/ML SC (14:10)
[2022-07-30 14:12] VITALS: BP 116/49; PULSE 74; RESP 14; TEMP 36.7; O2SAT 100; BMI 18.0
== END | disposition home or self-care (01) ==
LOC: MEDOUTP 13:56
PROVIDERS: PCP Internal Medicine; Referring Provider Internal Medicine; Visit Provider Internal Medicine
DX: M81.0 Age-related osteoporosis without current pathological fracture (principal)
CPT/HCPCS: 96372; J0897

== ENCOUNTER → 2022-11-12 | Outpatient (CLI) | payer MEDICARE, OTHER, SELFPAY ==
--- NOTE | 2022-11-12 08:13 | BI_ITS ---
MAMMOGRAPHY - BILATERAL SCREENING REASON FOR EXAM: Female, 67 years old. Routine annual screening examination. PERTINENT HISTORY: Sister with breast cancer. Remote right ultrasound-guided breast biopsy. TECHNIQUE: Digital bilateral breast emily (3D mammographic acquisition) in the CC and MLO projections. 2-D mediolateral oblique (MLO) and craniocaudad (CC) views of both breasts were obtained. CAD: Full Field Digital Mammography with Computer Added Detection was performed. COMPARISON: Comparison is made with prior study dated October 31, 2021 and October 26, 2020. FINDINGS: Breast Composition: The breasts are extremely dense, which lowers the sensitivity of mammography. There are no dominant masses or suspicious calcifications. A tissue clip marker is seen in the deep upper lateral aspect of the right breast. No other significant abnormalities are identified. There has been no significant change since the prior study. BI/SCRN MAMM (CAD)W/EMILY BILAT IMPRESSION: Stable bilateral screening mammogram. Yearly follow-up mammogram recommended. (A) ASSESSMENT CATEGORY: BIRADS Category 2: Benign. A letter regarding these results will be sent to the patient by the facility within 30 days. Approximately 10% of breast cancers are not detected by mammography. A normal mammogram should not delay biopsy of a clinically suspicious abnormality. [id number] Electronically Signed: Willie Anderson MD at 8:49 EDT ,
--- NOTE | 2022-11-12 08:36 | ECHOD_ITS ---
Reason For Study: MITRAL REGURG Procedure This was a 2D Doppler, Color Flow transthoracic echocardiogram. Exam performed in department. Left Ventricle Normal LV size. The estimated ejection fraction is 55 %. No evidence for diastolic dysfunction. No regional wall motion abnormalities noted. Right Ventricle Normal RV size. Normal systolic function. Atria Normal left atrium. Normal right atrium. No doppler evidence for ASD. Mitral Valve There is no mitral valve stenosis. Trivial mitral valve insufficiency. Tricuspid Valve There is no tricuspid stenosis. Trivial tricuspid valve insufficiency. Pulmonary artery systolic pressure is 35 mmHg. Aortic Valve Trisinus/trileaflet aortic valve. There is no aortic stenosis. No aortic valve insufficiency. Pulmonic Valve There is no pulmonic valvular stenosis. No pulmonic valve insufficiency. Great Vessels Normal aortic root. Pericardium/Pleural No pericardial effusion. MMode/2D Measurements & Calculations LVIDd: 4.5 cm IVSd: 0.74 cm Ao root diam: 3.0 cm LVIDs: 3.5 cm LVPWd: 1.1 cm RVDd: 2.5 cm FS: 22.2 % LAV(MOD-sp4): 22.6 ml LA A4 area: 12.0 cm2 LA dimension(2D): 3.5 cm RA A4 area: 8.9 cm2 Time Measurements MV dec time: 0.22 sec Doppler Measurements & Calculations MV E max salvador: 84.2 cm/sec Lat Peak E' Salvador: 12.0 cm/sec Med Peak E' Salvador: 12.1 cm/sec MV A max salvador: 79.5 cm/sec E/E' lat: 7.0 E/E' med: 7.0 MV E/A: 1.1 MV V2 max: 93.9 cm/sec MV dec slope: 379.4 cm/sec2 Ao V2 max: 134.7 cm/sec MV max P.6 mmHg Ao max P.3 mmHg MV V2 mean: 45.7 cm/sec Ao V2 mean: 90.6 cm/sec MV mean P.1 mmHg Ao mean P.7 mmHg MV V2 VTI: 30.7 cm Ao V2 VTI: 35.4 cm AV (velocity ratio): 0.81 LV V1 max: 94.9 cm/sec PA V2 max: 100.8 cm/sec TR max salvador: 282.8 cm/sec LV V1 max P.6 mmHg PA V2 mean: 70.8 cm/sec TR max P.0 mmHg LV V1 mean P.2 mmHg LV V1 mean: 70.4 cm/sec LV V1 VTI: 28.7 cm ECHO/Echo Complete Interpretation Summary The estimated ejection fraction is 55 %. No evidence for diastolic dysfunction. Trivial mitral valve insufficiency. Ordering Physician: Gracie Johnson Referring Physician: Gracie Johnson Performed By: Widder, Leny, RCS
--- NOTE | 2022-11-12 08:36 | RDU_ITS ---
Reason For Study: Stenosis Right Renal Artery Left Renal Dimensions Right renal artery ostium Non-Visualized. 208.8/24.6 RSV/EDV. Right renal artery proximal 192.6/21.6 PSV/EDV. Right renal artery mid 165.0/14.6 PSV/EDV. Right renal artery distal 200.3/21.6 PSV/EDV. Right RAR 2.31. Right Renal Parenchyma Upper Pole Medula 26.1/5.8 PSV/EDV. Right upper pole medulla EDR 0.20 . Right upper pole medulla R.I. 0.78 . Upper Travis Cortx 21.1/4.2 PSV/EDV. Right upper pole cortex EDR 0.20 . Right upper pole cortex R.I. 0.80 . Right lower Pole medulla 25.5/4.7 PSV/EDV . Right lower pole medulla EDR 0.20 . Right lower pole medulla R.I. 0.82 . Lower Pole Cortex 19.4/4.5 PSV/EDV. Right lower pole cortex EDR 0.20 . Right lower pole cortex R.I. 0.77 . Right Renal Hilar Right Hilar avg 154.6/12.6 PSV/EDV. Right hilar acceleration time 120 m/sec. Right Renal Dimensions Right kidney size 12.50 cm . Right cortical dimension 1.09 cm . Aorta Proximal abdominal aorta 1.95 x 1.94 cm . Distal abdominal aorta 1.31 x 1.27 cm . Proximal abdominal aorta peak systolic velocity is 88.4 cm/sec . Distal abdominal aorta peak systolic velocity is 90.4 cm/sec . VL/Renal Artery Duplex Ultrasound Interpretation Summary Right renal artery patent with elevated velocities but with normal renal-aortic ratio indicating no significant stenosis. Right renal vein patent Right kidney normal in size Left kidney and associated vascular structures not visualized. Ordering Physician: Gracie Johnson Referring Physician: Gracie Johnson Performed By: Onel Cummings RVT
== END | disposition home or self-care (01) ==
LOC: CVS 08:11
PROVIDERS: PCP Internal Medicine; Referring Provider Internal Medicine; Visit Provider Internal Medicine
DX: I70.1 Atherosclerosis of renal artery (principal); I34.0 Nonrheumatic mitral (valve) insufficiency; Z12.31 Encounter for screening mammogram for malignant neoplasm of breast
CPT/HCPCS: 77063; 77067; 93306; 93975

== ENCOUNTER 2023-01-28 13:40 | Outpatient (CLI) | payer MEDICARE, OTHER, SELFPAY ==
[2023-01-28] MEDS: DENOSUMAB 60 MG/ML SC (13:48)
[2023-01-28 13:51] VITALS: BP 121/48; PULSE 68; RESP 14; TEMP 36.4; O2SAT 100; BMI 17.8
== END 2023-01-28 13:41 | disposition home or self-care (01) ==
LOC: MEDOUTP 13:41
PROVIDERS: PCP Internal Medicine; Referring Provider Internal Medicine; Visit Provider Internal Medicine
DX: M81.0 Age-related osteoporosis without current pathological fracture (principal)
CPT/HCPCS: 96372; J0897

== ENCOUNTER 2023-07-29 12:46 | Outpatient (CLI) | payer MEDICARE, OTHER, SELFPAY ==
[2023-07-29 12:57] VITALS: BP 125/46; PULSE 66; RESP 16; TEMP 36.4; O2SAT 100; BMI 18.0
[2023-07-29] MEDS: DENOSUMAB 60 MG/ML SC (13:01)
== END 2023-07-29 12:47 | disposition home or self-care (01) ==
LOC: MEDOUTP 12:46
PROVIDERS: PCP Internal Medicine; Referring Provider Internal Medicine; Visit Provider Internal Medicine
DX: M81.0 Age-related osteoporosis without current pathological fracture (principal)
CPT/HCPCS: 96372; J0897

== ENCOUNTER → 2023-09-29 | Outpatient (CLI) | payer MEDICARE, OTHER, SELFPAY ==
--- NOTE | 2023-09-29 08:00 | MRI_ITS ---
EXAM: MR HEAD WITHOUT INTRAVENOUS CONTRAST CLINICAL INDICATION: Headache. TECHNIQUE: Multiplanar and multisequence MR images of the brain were obtained without intravenous contrast. COMPARISON: No relevant prior studies available. FINDINGS: BRAIN AND EXTRA-AXIAL SPACES: T2 FLAIR hyperintensity foci in the white matter of both cerebral hemispheres are chronic white matter ischemic changes. No midline shift and no mass effects. No intra- or extra-axial hemorrhage. Posterior fossa structures are unremarkable. Ventricles are appropriate for age. No hydrocephalus. Basal cisterns are patent. No diffusion restriction to suspect acute or subacute ischemic infarct. SELLA: Unremarkable. Normal sella turcica, pituitary gland, infundibular stalk, optic chiasm and hypothalamus. AUDITORY SYSTEM: Unremarkable. The internal auditory canals are patent. BONES/JOINTS: Unremarkable. No discrete lytic or blastic abnormalities. SINUSES: Unremarkable as visualized. Clear. MASTOID AIR CELLS: Unremarkable as visualized. Clear. ORBITS: Unremarkable as visualized. Both globes, extraocular muscles, optic nerves and retrobulbar fat appear unremarkable. VASCULATURE: Unremarkable as visualized. Normal flow voids in the major intracranial circulation. MRI/Brain without Contrast IMPRESSION: 1. No MRI evidence of acute or subacute ischemic infarct or acute intracranial abnormality. 2. Chronic white matter ischemic changes in both cerebral hemispheres. 3. No MRI evidence of remote cortical-based ischemic infarct. Electronically Signed: Rodrigo Mcneill MD at 13:47 EST ,
== END | disposition home or self-care (01) ==
LOC: MRI 07:27
PROVIDERS: PCP Internal Medicine; Referring Provider Internal Medicine; Visit Provider Internal Medicine
DX: R51.9 Headache, unspecified (principal)
CPT/HCPCS: 70551

== ENCOUNTER → 2023-11-14 | Outpatient (CLI) | payer MEDICARE, OTHER, SELFPAY ==
--- NOTE | 2023-11-14 07:29 | BI_ITS ---
MAMMOGRAPHY - BILATERAL SCREENING REASON FOR EXAM: Female, 68 years old. Routine annual screening examination. PERTINENT HISTORY: Sister with breast cancer. Prior renal transplantation. TECHNIQUE: Digital bilateral breast emily (3D mammographic acquisition) in the CC and MLO projections. 2-D mediolateral oblique (MLO) and craniocaudad (CC) views of both breasts were obtained. CAD: Full Field Digital Mammography with Computer Added Detection was performed. COMPARISON: Comparison is made with prior study November 12, 2022 and October 31, 2021. FINDINGS: Breast Composition: The breasts are extremely dense, which lowers the sensitivity of mammography. There are no dominant masses or suspicious calcifications. A tissue clip marker is once again seen in the deep upper lateral aspect of the right breast. No other significant abnormalities are identified. There has been no significant change since the prior study. BI/SCRN MAMM (CAD)W/EMILY BILAT IMPRESSION: Stable bilateral screening mammogram. Yearly follow-up mammogram recommended. (A) ASSESSMENT CATEGORY: BIRADS Category 2: Benign. A letter regarding these results will be sent to the patient by the facility within 30 days. Approximately 10% of breast cancers are not detected by mammography. A normal mammogram should not delay biopsy of a clinically suspicious abnormality. [id number] Electronically Signed: Willie Anderson MD at 8:56 EDT ,
== END | disposition home or self-care (01) ==
LOC: OPBI 07:28
PROVIDERS: PCP Internal Medicine; Referring Provider Internal Medicine; Visit Provider Internal Medicine
DX: Z12.31 Encounter for screening mammogram for malignant neoplasm of breast (principal)
CPT/HCPCS: 77063; 77067

== ENCOUNTER 2024-01-30 12:58 | Outpatient (CLI) | payer MEDICARE, OTHER, SELFPAY ==
[2024-01-30 13:12] VITALS: BP 127/56; PULSE 72; RESP 16; TEMP 36.9; O2SAT 99; BMI 18.8
[2024-01-30] MEDS: DENOSUMAB 60 MG/ML SC (13:25)
== END 2024-01-30 23:59 | disposition home or self-care (01) ==
LOC: MEDOUTP 12:58
PROVIDERS: PCP Internal Medicine; Referring Provider Internal Medicine; Visit Provider Internal Medicine
DX: M81.0 Age-related osteoporosis without current pathological fracture (principal)
CPT/HCPCS: 96372; J0897

== ENCOUNTER 2024-07-30 11:53 | Outpatient (CLI) | payer MEDICARE, OTHER, SELFPAY ==
[2024-07-30 11:58] VITALS: BP 113/40; PULSE 77; RESP 16; TEMP 35.6; O2SAT 99; BMI 18.6
[2024-07-30] MEDS: DENOSUMAB 60 MG/ML SC (12:04)
== END 2024-07-30 23:59 | disposition home or self-care (01) ==
LOC: MEDOUTP 11:54
PROVIDERS: PCP Internal Medicine; Referring Provider Internal Medicine; Visit Provider Internal Medicine
DX: M81.0 Age-related osteoporosis without current pathological fracture (principal)
CPT/HCPCS: 96372; J0897

== ENCOUNTER → 2024-09-30 | Outpatient (CLI) | payer MEDICARE, OTHER, SELFPAY ==
[2024-09-30 10:57] LABS: Troponin-I HS 5 pg/mL (3.0-54.0)
== END | disposition home or self-care (01) ==
PROVIDERS: PCP Internal Medicine; Referring Provider Internal Medicine; Visit Provider Internal Medicine
DX: R07.89 Other chest pain (principal)
CPT/HCPCS: 84484

== ENCOUNTER → 2024-11-01 | Outpatient (CLI) | payer MEDICARE, OTHER, SELFPAY ==
--- NOTE | 2024-11-01 06:47 | ECHOD_ITS ---
Reason For Study Reason For Study: CHEST PAIN Procedure This was a 2D Doppler, Color Flow transthoracic echocardiogram. Exam performed in department. Left Ventricle Normal LV size. The left ventricular ejection fraction is 60 %. No regional wall motion abnormalities noted. Right Ventricle Normal RV size. Normal systolic function. Atria Normal left atrium. Normal right atrium. Mitral Valve Normal mitral valve. Mild (1+) eccentric mitral valve insufficiency. Tricuspid Valve Normal tricuspid valve. Mild tricuspid valve insufficiency. Pulmonary artery systolic pressure is 30 mmHg. Aortic Valve Trisinus/trileaflet aortic valve. Pulmonic Valve Normal pulmonic valve. Great Vessels Normal aortic root. The pulmonary artery is normal size. Inferior vena cava collapse with respiration. Pericardium/Pleural No pericardial effusion. MMode/2D Measurements & Calculations LVIDd: 4.1 cm IVSd: 0.82 cm LAV(MOD- bp): 33.5 ml LVIDs: 2.8 cm LVPWd: 0.79 cm LAV(MOD- bp) Indexed: 20.6 ml/m2 RVDd: 2.7 cm FS: 31.7 % LAV(MOD- sp2): 30.3 ml LAV(MOD- sp4): 36.4 ml SV(MOD-sp4): 48.9 ml SV(sp4- el): 50.5 ml LVAd ap4: 26.9 cm2 LVLd ap4: 7.0 cm SI(MOD-sp4): 30.1 ml/m2 EDV(MOD-sp4): 84.9 ml EDV(sp4-el): 87.4 ml LVAs ap4: 15.6 cm2 LVLs ap4: 5.6 cm ESV(MOD-sp4): 35.9 ml ESV(sp4-el): 36.9 ml EF(MOD-sp4): 57.7 % EF(sp4-el): 57.8 % LA A4 area: 14.6 cm2 LA dimension(2D): 2.8 cm RA A4 area: 14.0 cm2 TAPSE: 2.6 cm Time Measurements MV dec time: 0.24 sec Doppler Measurements & Calculations MV E max salvador: 73.2 cm/sec Lat Peak E' Salvador: 7.6 cm/sec Med Peak E' Salvador: 9.6 cm/sec MV A max salvador: 59.6 cm/sec E/E' lat: 9.6 E/E' med: 7.7 MV E/A: 1.2 Ao V2 max: 105.7 cm/sec LV V1 max: 85.7 cm/sec MV dec slope: 307.1 cm/sec2 Ao max P.5 mmHg LV V1 max P.9 mmHg Ao V2 mean: 72.8 cm/sec LV V1 mean P.5 mmHg Ao mean P.3 mmHg LV V1 mean: 59.5 cm/sec Ao V2 VTI: 24.8 cm LV V1 VTI: 19.0 cm AV (velocity ratio): 0.77 PA V2 max: 93.0 cm/sec TR max salvador: 250.6 cm/sec TR max P.1 mmHg ECHO/Echo Complete Interpretation Summary Normal LV size. The left ventricular ejection fraction is 60 %. Mild tricuspid valve insufficiency. Mild (1+) eccentric mitral valve insufficiency. Ordering Physician: Gracie Johnson Referring Physician: Gracie Johnson Performed By: Lanie Vidal RDCS, RVT
--- NOTE | 2024-11-01 09:00 | STRESSREP ---
Stress Test Report Exercise myocardial perfusion stress test. 69-year-old lady with a history of chest pain Stress protocol: Resting EKG demonstrates normal sinus rhythm with a rate of 63 bpm resting blood pressure is 118/70 mmHg. The patient exercised according to the regular Mesfin protocol for a total duration of 9 minutes attaining a maximum heart rate of 148 bpm which was 99% of maximum predicted heart rate; the maximum workload was 10.4 metabolic equivalents. At rest there were no ST or T wave changes noted to suggest ischemia and at peak exercise upsloping ST changes only were noted which did not meet the criteria for ischemia. No clinical angina was noted the test was terminated due to the target heart rate being achieved/fatigue. The peak blood pressure was 150/72 mmHg. Rate-pressure product was 21,600. Myocardial perfusion protocol. 11.2 mCi of technetium 99m sestamibi was injected at rest. The patient exercised according to regular Mesfin protocol for total duration of 9 minutes and at peak exercise 33.3 mCi of technetium 99m sestamibi was injected stress images were obtained stress and rest images were reconstructed in comparing the short axis vertical long and horizontal long axis. Gated images were also obtained. Perfusion SPECT analysis: Review of the stress images demonstrate normal uptake of tracer noted in all areas of the myocardium. The resting images similarly demonstrate normal uptake of tracer noted in all areas of the myocardium. No areas of reversibility are noted to suggest ischemia no previous infarct was noted. Gated SPECT analysis: The gated ejection fraction is 68%. Conclusion: Normal exercise myocardial perfusion stress test at a high workload Preserved ejection fraction.
== END | disposition home or self-care (01) ==
PROVIDERS: PCP Internal Medicine; Referring Provider Internal Medicine; Visit Provider Internal Medicine
DX: R07.89 Other chest pain (principal); R00.2 Palpitations
CPT/HCPCS: 78452; 93017; 93225; 93226; 93306; A9500; A4216

== ENCOUNTER → 2024-11-18 | Outpatient (CLI) | payer MEDICARE, OTHER, SELFPAY ==
--- NOTE | 2024-11-18 07:59 | BI_ITS ---
EXAM: SCRN MAMM (CAD)W/EMILY BILAT 11/18/2024 CLINICAL HISTORY: F, Age 69 y/o , SCREENING. Family history of breast cancer in her sister at age 62 TECHNIQUE: Bilateral screening digital breast tomosynthesis with 2D and 3D images. Computer aided detection. COMPARISON: Prior exam(s) dated 11/14/2023, 11/12/2022. FINDINGS: TISSUE DENSITY: The breast tissue is heterogenously dense, which may obscure small masses. The mammogram demonstrates that the patient has dense breasts. Supplemental screening with whole breast ultrasound or MRI may be considered for further evaluation. Bilateral Breast Mammographic Findings: There is architectural distortion in the upper slightly outer right breast at middle depth, with a an adjacent biopsy marker clip. This area has not significantly change on the prior examination. Otherwise, there are no suspicious findings in the right breast. No significant masses, calcifications or other abnormalities are identified in the left breast. BI/SCRN MAMM (CAD)W/EMILY BILAT IMPRESSION: Right Breast: BIRADS 2 BENIGN FINDING. Left Breast: BIRADS 1 NEGATIVE. OVERALL FINAL ASSESSMENT: BIRADS 2 BENIGN FINDING. RECOMMENDATION: Routine annual follow-up in 1 Year A letter with findings and recommendations will be mailed to the patient. Reading Location: [id number]
--- NOTE | 2024-11-18 07:59 | BD_ITS ---
PROCEDURE: DEXA BONE DENSITY STUDY 11/18/2024 REASON FOR EXAM: Screening F, age 69 y/o . TECHNIQUE: DXA scan of the lumbar spine and left hip, using Hologic. REFERENCE LINKS: ISCD Adult Positions COMPARISON: October 31, 2021 FINDINGS: BMD and T-SCORES Lumbar spine: 1.028 g/cm2, T-Score -0.2 L1 through L4 Change from prior: 7.8% Left femoral neck: 0.523 g/cm2, T-Score -2.9 Femoral neck comparison data not recommended for monitoring change. Left total hip: 0.689 g/cm2, T-Score -2.1 Change from prior: 7.7% Right femoral neck: 0.566 g/cm2, T-Score -2.5 Femoral neck comparison data not recommended for monitoring change. Right total hip: 0.656 g/cm2, T-Score -2.3 Change from prior: 0.1 % BD/Dexa Bone Density Study IMPRESSION: OSTEOPOROSIS. Recommend follow-up as clinically warranted. Reading Location: [id number]
== END | disposition home or self-care (01) ==
LOC: OPBD 07:54
PROVIDERS: PCP Internal Medicine; Referring Provider Internal Medicine; Visit Provider Internal Medicine
DX: Z12.31 Encounter for screening mammogram for malignant neoplasm of breast (principal); Z78.0 Asymptomatic menopausal state
CPT/HCPCS: 77063; 77067; 77080

== ENCOUNTER 2025-01-21 11:52 | Outpatient (CLI) | payer MEDICARE, OTHER, SELFPAY ==
[2025-01-21 12:13] VITALS: BP 109/63; PULSE 69; RESP 16; TEMP 36.4; O2SAT 100; BMI 18.6
[2025-01-21] MEDS: DENOSUMAB 60 MG/ML SC (12:15)
== END 2025-01-21 23:59 | disposition home or self-care (01) ==
LOC: MEDOUTP 11:54
PROVIDERS: PCP Internal Medicine; Referring Provider Internal Medicine; Visit Provider Internal Medicine
DX: M81.0 Age-related osteoporosis without current pathological fracture (principal)
CPT/HCPCS: 96372; J0897

== ENCOUNTER 2025-03-11 07:30 | Outpatient (RCR) | payer MEDICARE, OTHER, SELFPAY ==
--- NOTE | 2025-02-14 08:29 | HP.PTEVAL_ITS ---
Patient's Visit Information Visit Information Visit Information: TRUDY ARGUETA is a 69 year old F referred to Physical Therapy by Dr. Diane Hernandez DPM with a diagnosis of L achilles strain, heel spur, bursopathy.. Date of Evaluation: 02/14/25 Physical Therapist: Aly Posada DPT, OCS, CSCS Visit Plan Frequency: 3x /Week Duration: 4-6 Weeks Plan: 3x/week for 4 weeks (start 2) for 1. US nonthermal L achilles insertion 2. STM gastroc soleus L and strtch same.foot pul and ankle mobs. 3. teach eccentrics for L achilles for HEPE 4. oversee management of heel lift and night splint which pt may get Will consider ionto if progress not made. IE HEP: gastrco stretch wall 30" 4x first in am and one other time. AP 20x am and throughout day when sitting, education on heel lift and night splint judi efits and pics given for purchase. Subjective Subjective: L achilles strain and was in a boot for a while. It hurt for a long time come and go. This year it stayed at achilles insertion. Was in boot for 3 weeks and it went away. Out of boot now for a month and the pain returned. Only hurts in am and when get up from sitting. 2/10 once stretched out, 0 at rest, 7/10 in am 30 minutes. Activities: normal. Sleep well. 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 No regular ex; walks alot, nothing specific, stair stretch were tried. Pain L achilles: Pain Intensity (Out of 10): 0 Pain Intensity Range: 0 and 7 Objective Objective: Walks with slight L antalgia for a second getting out of chair but otherwise normal. has pain L achilles insertion descending steps adn a few steps afterwards. All I. Transfers I. Tender to palpation medial L achills insertion moderately. Pes cavus B feet is obvious. AROM 4 degrees DF B, 56 PF B, 25 inv and 14 eversion, no pain today. stretching with end range DF L. 4/5 strength B ankles , no pain today, able to heel raise with some L sided minor discomfort, walking on toes wihtout pain. Heel walking without pain. obvious bone spur medial L calcaneus at insertion palpable. Balance/Special Test Scores Lower Extremity Functional Score: 72 Goals Goal 1:: exit bed with 1/10 pain at worst and manageable Goal Time Frame: 4-6 Weeks Goal 2:: pt sit and arise adn walk without antalgia Goal Time Frame: 4-6 Weeks Goal 3:: I management of condition including HEP to minimize future problems Goal Time Frame: 4-6 Weeks Rehabilitation Potential Physical Therapy Diagnosis: Pain L achilles upon arising limiting comfortable f unction. Rehabilitation Potential: Fair Anticipated Interventions Patient/Client Instruction: Educate patient on: Condition and Plan of Care For the Purpose of:: To decrease pain, To decrease swelling/inflammation, To improve nutrient delivery to tissue, To improve muscle performance and motor function, To increase tolerance to activity/condition/position and To improve ability of physical actions for home/community/work/leisure Therapeutic Exercise to Include: Strength training, Flexibilty training, Gait and locomotor training, Passive ROM and Active ROM For the Purpose of:: To decrease pain, To decrease swelling/inflammation, To improve nutrient delivery to tissue, To improve muscle performance and motor function and To increase tolerance to activity/condition/position Manual Therapy Techniques to Include: Mobilization, Passive ROM and Soft tissue mobilization For the Purpose of:: To decrease pain, To increase ROM, To improve nutrient delivery to tissue, To improve muscle performance and motor function and To increase tolerance to activity/condition/position Orthotics: Shoe insert For the Purpose of:: To decrease pain, To improve muscle performance and motor function, To increase tolerance to activity/condition/position, To improve ability of physical actions for home/community/work/leisure and To improve gait and locomotor functions Ultrasound (thermal/non thermal): Yes For the Purpose of:: To decrease pain and To decrease swelling/inflammation Text: Thank you for the opportunity to evaluate your patient. For Medicare and Medicare HMO plans, please review the plan of care and approve it. It will need to be FAXED BACK to us at [phone] for Medicare purposes. For Medicare only, by signing this I certify the plan of care. Please let me know if there are questions or concerns regarding this plan of care. Physician Signature: Date:
--- NOTE | 2025-03-11 07:54 | HP.PTDCSUM_ITS ---
Discharge Summary D/C summary: It has been my pleasure to treat TRUDY ARGUETA referred by Dr. Diane Hernandez DPM, with the diagnosis of L achilles strain, heel spur, bursopathy. for a total of 7 visit(s). Discharge Date: 03/11/25 Please see the following information for a summary of their discharge status. Subjective Subjective: Doing exercises regularly, eccentrics still hurt. Hurts to go downstair transiently. Hurts if sits too long. 4/10 on steps and 5/10 in am f or 30 minutes. Has nightsplint and used it a few times, not much notice help. Sees doctor next week. Activities: normal. No limping. is about the same as shee was two weeks ago. On feet all day and it does not bother huber. Pain L achilles: Pain Intensity (Out of 10): 0 Overall Improvement % Improvement: 60 Objective Objective/Function: 4 degree DF without pain. 4+/5 strength. eccentrics still painful but transient. descending steps still painful transiently. No limping this morning. Tender achilles insert L Goals Goal 1:: exit bed with 1/10 pain at worst and manageable Goal Progress: Not Progressing Goal 2:: pt sit and arise adn walk without antalgia Goal Progress: Goal Met Goal 3:: I management of condition including HEP to minimize future problems Goal Progress: Goal Met Plan Plan: d/c, pt back to doctor for other options, overall is improved funcitonally but similar pain with steps and 30 min in am. Will try heel lifts which she has, night splint did not help. Will f/u with doctor for options next week and could consider RPW, if found appropriate D/C Information d/c sentence: If there are questions or concerns regarding this patient's physical therapy, please feel free to call me at [phone]. Thank you for the referral of this patient. Sincerely, Aly Posada, DPT, OCS, CSCS Balance/Gait/Functional tests Balance/Special Test Scores Lower Extremity Functional Score: 79 Improvement % Improvement: 60
== END 2025-03-11 19:00 | disposition home or self-care (01) ==
LOC: PT 07:30
PROVIDERS: PCP Internal Medicine; Referring Provider Podiatrist; Visit Provider Podiatrist
DX: M77.32 Calcaneal spur, left foot (principal); M71.9 Bursopathy, unspecified; S86.012S Strain of left Achilles tendon, sequela
CPT/HCPCS: 97035; 97110; 97140; 97161; 97164; 97530

== ENCOUNTER → 2025-04-07 | Outpatient (CLI) | payer MEDICARE, OTHER, SELFPAY | END | disposition home or self-care (01) | LOC: LABSPEC 12:31 | PROVIDERS: PCP Internal Medicine; Referring Provider Internal Medicine; Visit Provider Internal Medicine | DX: R35.0 Frequency of micturition (principal) | CPT/HCPCS: 87086 ==

== ENCOUNTER → 2025-04-29 | Outpatient (CLI) | payer MEDICARE, OTHER, SELFPAY ==
[2025-04-29 12:55] LABS: Hematocrit 37.1 % (37-47); Hemoglobin 12.7 g/dL (12.0-15.0); Immature Granulocytes Count 0.010 X10^3/uL (0.0-0.0); Mean Corp Hgb Conc 34.2 g/dL (32-36); Mean Corpuscular Volume 90.3 fL (81-99); Mean Platelet Vol. 12.5 fl (6.2-12.0); NRBC Flagged by Analyzer 0 % (0-5); Platelet Count 155 K/mm3 (150-450); RBC Distribution Width CV 12.7 % (11.6-14.6); RBC Distribution Width SD 41.8 fl (35.1-43.9); Red Blood Count 4.11 M/mm3 (4.2-5.4); White Blood Count 5.0 K/mm3 (4.4-11.0)
[2025-04-29 13:24] LABS: Anion Gap 12 (5-15); BUN 21 mg/dL (4-19); BUN/Creat Ratio 17.4 RATIO (10-20); Calcium,Total 9.7 mg/dL (7.6-11.0); Carbon Dioxide 24.0 mmol/L (21.0-32.0); Chloride 98 mmol/L (98-108); Glucose 90 mg/dL (70-99); Potassium 4.8 mmol/L (3.3-5.1)
[2025-04-29 13:27] LABS: CRP < 3.00 mg/L (0.0-3.0)
== END | disposition home or self-care (01) ==
PROVIDERS: PCP Internal Medicine; Referring Provider Internal Medicine; Visit Provider Internal Medicine
DX: R10.9 Unspecified abdominal pain (principal)
CPT/HCPCS: 80048; 85025; 86140; 87086

== ENCOUNTER → 2025-05-03 | Outpatient (CLI) | payer MEDICARE, OTHER, SELFPAY ==
--- NOTE | 2025-05-03 09:09 | RDU_ITS ---
Reason For Study Reason For Study: Kidney transplant pain Aorta Proximal abdominal aorta 2.00 x 1.98 cm . Proximal abdominal aorta peak systolic velocity is 83 cm/sec . Distal abdominal aorta 1.50 x 1.47 cm . Distal abdominal aorta peak systolic velocity is 100.2 cm/sec . . Rt ABRAN prox, prox to anastamosis, 159.4/12.3cm/sec. Rt ABRAN dist, dist to anastamosis, 181.3/7.9 cm/sec.. Transplant kidney, right groin Prox anastamosis, 181.2/27.6 cm/sec Prox renal artery, 119.8/23.3 cm/sec. Mid renal artery, 124.2/29.8 cm/sec. Distal renal artery, 130.8/32 cm/sec. Upper Pole Medula 26.2 PSV/EDV. Upper pole medulla EDR 0.2 . Upper pole medulla R.I. 0.76 . Upper Travis Cortx 15/3.7 PSV/EDV. Upper pole cortex EDR 0.2. Upper pole cortex R.I. 0.76. Lower Pole medulla 19.8/4.9 PSV/EDV . Lower pole medulla EDR 0.2 . Lower pole medulla R.I. 0.75 . Lower Pole Cortex 12.7/3.2 PSV/EDV. Lower pole cortex EDR 0.2 . Lower pole cortex R.I. 0.75. Hilar avg 72.1/7.3 PSV/EDV. Hilar acceleration time 80.0 m/sec. Renal vein noted with normal venous flow. Transplant kidney measures 11.5 cm. Cortex measures 1.32 cm. VL/Renal Artery Duplex Ultrasound Interpretation Summary Transpant renal artery patent with normal velocities and no evidence of stenosi s. Transplant renal vein patent. Transplant kidney normal in size. Ordering Physician: Gracie Johnson Referring Physician: Gracie Johnson Performed By: Julianne Gao RVT
== END | disposition home or self-care (01) ==
LOC: CVS 09:04
PROVIDERS: PCP Internal Medicine; Referring Provider Internal Medicine; Visit Provider Internal Medicine
DX: Z94.0 Kidney transplant status (principal)
CPT/HCPCS: 93975

== ENCOUNTER → 2025-06-07 | Outpatient (CLI) | payer MEDICARE, OTHER, SELFPAY | END | disposition home or self-care (01) | LOC: LABSPEC 13:26 | PROVIDERS: PCP Internal Medicine; Referring Provider Internal Medicine; Visit Provider Internal Medicine | DX: J02.9 Acute pharyngitis, unspecified (principal) | CPT/HCPCS: 87070 ==

== ENCOUNTER 2025-07-22 11:56 | Outpatient (CLI) | payer MEDICARE, OTHER, SELFPAY ==
[2025-07-22 12:04] VITALS: BP 132/47; PULSE 61; RESP 16; TEMP 36.1; O2SAT 100; BMI 18.8
[2025-07-22] MEDS: DENOSUMAB 60 MG/ML SC (12:07)
== END 2025-07-22 23:59 | disposition home or self-care (01) ==
LOC: MEDOUTP 11:57
PROVIDERS: PCP Internal Medicine; Referring Provider Internal Medicine; Visit Provider Internal Medicine
DX: M81.0 Age-related osteoporosis without current pathological fracture (principal)
CPT/HCPCS: 96372; J0897

== ENCOUNTER → 2025-08-09 | Outpatient (CLI) | payer MEDICARE, OTHER, SELFPAY ==
[2025-08-09 12:20] LABS: Hematocrit 39.1 % (37-47); Hemoglobin 12.8 g/dL (12.0-15.0); Immature Granulocytes Count 0.030 X10^3/uL (0.0-0.0); Mean Corp Hgb Conc 32.7 g/dL (32-36); Mean Corpuscular Volume 92.0 fL (81-99); Mean Platelet Vol. 12.5 fl (6.2-12.0); NRBC Flagged by Analyzer 0 % (0-5); Platelet Count 159 K/mm3 (150-450); RBC Distribution Width CV 13.1 % (11.6-14.6); RBC Distribution Width SD 43.9 fl (35.1-43.9); Red Blood Count 4.25 M/mm3 (4.2-5.4); White Blood Count 4.5 K/mm3 (4.4-11.0)
[2025-08-09 12:27] LABS: AST(SGOT) 37 U/L (<=31); Alanine Aminotransfer ALT/SGPT 35 U/L (<=34); Albumin, Serum 4.7 g/dL (3.4-4.8); Alkaline Phosphatase 51 U/L (35-104); Anion Gap 12 (7-18); BUN 21 mg/dL (4-19); BUN/Creat Ratio 19.9 RATIO (10-20); Calcium,Total 10.5 mg/dL (7.6-11.0); Carbon Dioxide 26.4 mmol/L (20.0-29.0); Chloride 100 mmol/L (96-106); Globulin 2.7 g/dL (2.2-4.2); Glucose 91 mg/dL (70-99); Potassium 4.3 mmol/L (3.5-5.1)
[2025-08-09 12:36] LABS: Creatinine, Urine (random) 149.00 mg/dL (28.00-217.00); Microalbumin,Random Urine 21.5 mg/L (<20 mg/L)
[2025-08-10 08:09] LABS: HOMOCYSTEINE 11.7 umol/L (0.0-19.2)
[2025-08-16 01:07] LABS: LDL, Direct 120295 170 mg/dL (0-99)
== END | disposition home or self-care (01) ==
PROVIDERS: PCP Internal Medicine; Visit Provider Internal Medicine
DX: E78.49 Other hyperlipidemia (principal); Z94.0 Kidney transplant status; R79.89 Other specified abnormal findings of blood chemistry
CPT/HCPCS: 36415; 80053; 80158; 82043; 82570; 83090; 83721; 85025